=== PATIENT | female | born 1940 | race Caucasian/White ===

== ENCOUNTER 2024-09-27 11:42 | Inpatient (IN) ==
--- NOTE | 2024-09-27 11:56 | Emergency Department Note ---
Impression & Plan Intertrochanteric fracture of right hip, Fall from standing, Acute pain of right hip ED Provider Note HISTORY OF PRESENT ILLNESS: Patient is an 84-year-old female presenting with right hip pain after a fall. Patient reports she was taking her trash outside and slipped on some snow and ice and landed on her right hip and then struck her head. She denies any loss of consciousness. Reports that she was unable to get up secondary to the fall and had to call 911. She denies any anticoagulation or antiplatelet use. Currently complaining of pain at the right lateral hip. Denies any numbness or tingling down her extremities. Denies any chest pain, shortness of breath or lightheadedness prior to the fall, she reports she just lost her footing on the snow. ROS: as above PHYSICAL EXAM: Constitutional: Patient appears in no acute distress. HENT: Head: Normocephalic and atraumatic. Eyes: EOMI, PERRL Mouth/Throat: Mucous membranes moist. Neck: Trachea midline. Neck supple. No midline cervical spine tenderness to palpation. Cardiovascular: RRR, No murmurs, rubs or gallops. Intact distal pulses. Pulmonary/Chest: No respiratory distress. Breath sounds clear and equal bilaterally. No wheezes or rales. No chest wall tenderness to palpation. Abdominal: Abdomen soft, no tenderness, rebound or guarding. Musculoskeletal: - RLE: Right leg is shortened and externally rotated. Tenderness to palpation along the proximal lateral femur. Patient is able to dorsiflex and plantarflex the ankle and wiggle toes. Sensation intact to light touch throughout the nerve distributions of the leg. Intact DP pulse. Skin: Warm and dry. No rash, erythema, pallor or cyanosis Psychiatric: Appropriate mood and affect for situation. Neurological: Alert and keenly responsive. CN II-XII grossly intact MDM: - Vitals signs showed hypertension. - History obtained via patient. History as above. - Chronic conditions affecting care: HTN - Differential diagnoses include, but are not limited to: femur fracture; pelvic fracture; hip dislocation; contusion; intracranial hemorrhage - Order placed for continuous cardiac monitoring. At this time, monitor showed rate of 80 bpm with normal sinus rhythm, per my interpretation. - External medical records reviewed. - EKG interpreted by myself showed normal sinus rhythm. Rate 75 bpm. QT 356. No acute ischemic changes. - Laboratory workup interpreted by myself showed leukocytosis (WBC 12.09); normal PT/INR; stable electrolytes; normal troponin - Xray right hip with pelvis showed intertrochanteric fracture, per my interpretation. - CXR negative for pneumonia, per my interpretation - Patient initially given 50 mcg IV fentanyl. However, on reassessment she still complaining of pain. Given 4 mg IV Zofran and 4 mg IV morphine. However, on reassessment at 14:06, she still complaining of significant pain. Given 0.5 mg IV dilaudid. - CT head wo contrast negative for acute intracranial pathology. - Discussed case with orthopedist flight communications officer, Dr. Rivera. - Discussion was had with casework manager about patient's case and need for admission - Hospitalist consulted for admission - [facility] ASSESSMENT AND PLAN: Diagnosis: intertrochanteric fracture of right hip; fall from standing; acute pain of right hip Plan: admit Past Med/Surg History Problem List (Updated 09/27/24 @ 14:10 by Alexa Lopes MD) Acute pain of right hip (Acute) Fall from standing (Acute) Intertrochanteric fracture of right hip (Acute) Social History Smoking Status: Current every day smoker Feels Safe at Home: Yes Allergies Allergies Allergy/AdvReac Type Severity Reaction Status Date / Time No Known Allergies Allergy Unverified 09/27/24 13:50 Home Meds Home Medications Medication Instructions Recorded Confirmed Fish Oil 1 cap PO DAILY 09/27/24 09/27/24 Vitamin D3 1 tab PO DAILY 09/27/24 09/27/24 acetaminophen 500 mg tablet 50 mg PO DIRECTED PRN Pain 09/27/24 09/27/24 atorvastatin 20 mg tablet 20 mg PO DAILY 09/27/24 09/27/24 calcium 1 tab PO DAILY 09/27/24 09/27/24 lisinopril 20 mg tablet 20 mg PO DAILY 09/27/24 09/27/24 magnesium 1 tab PO DAILY 09/27/24 09/27/24 Results & Data (ED) Vital Signs Vital Signs - 24 hr 09/27/24 11:47 09/27/24 11:49 09/27/24 12:06 Temperature 36.9 C Temperature Source Oral Pulse Rate 73 74 72 Pulse Rate [Finger] Pulse Rhythm [Finger] Pulse Strength [Finger] Respiratory Rate 18 20 Respiratory Effort / Characteristics Respiratory Depth Blood Pressure 155/106 H Blood Pressure [Right Arm] Blood Pressure Mean 122 Blood Pressure Mean [Right Arm] Pulse Oximetry 94 Oxygen Delivery Method Sepsis Recent Fever Within 48 Hours No Sepsis New/Unexplained Change in Mental Status N/A Sepsis Action Taken by Nursing No Action Required 09/27/24 12:12 09/27/24 12:18 09/27/24 13:03 Temperature Temperature Source Pulse Rate 73 66 Pulse Rate [Finger] Pulse Rhythm [Finger] Pulse Strength [Finger] Respiratory Rate 25 H 22 Respiratory Effort / Characteristics Respiratory Depth Blood Pressure 151/75 H Blood Pressure [Right Arm] Blood Pressure Mean 124 Blood Pressure Mean [Right Arm] Pulse Oximetry 92 93 Oxygen Delivery Method Room Air Room Air Sepsis Recent Fever Within 48 Hours Sepsis New/Unexplained Change in Mental Status Sepsis Action Taken by Nursing 09/27/24 13:03 09/27/24 13:06 09/27/24 13:18 Temperature Temperature Source Pulse Rate 64 65 Pulse Rate [Finger] Pulse Rhythm [Finger] Pulse Strength [Finger] Respiratory Rate 18 20 Respiratory Effort / Characteristics Respiratory Depth Blood Pressure 151/75 H Blood Pressure [Right Arm] Blood Pressure Mean 124 Blood Pressure Mean [Right Arm] Pulse Oximetry 94 96 Oxygen Delivery Method Room Air Room Air Sepsis Recent Fever Within 48 Hours Sepsis New/Unexplained Change in Mental Status Sepsis Action Taken by Nursing 09/27/24 13:24 09/27/24 13:30 09/27/24 13:31 Temperature Temperature Source Pulse Rate 87 Pulse Rate [Finger] 79 Pulse Rhythm [Finger] Regular Pulse Strength [Finger] Normal Respiratory Rate 13 20 Respiratory Effort / Characteristics Non-Labored Respiratory Depth Normal Blood Pressure 152/74 H Blood Pressure [Right Arm] 152/74 H Blood Pressure Mean 121 Blood Pressure Mean [Right Arm] 100 Pulse Oximetry 94 Oxygen Delivery Method Room Air Sepsis Recent Fever Within 48 Hours Sepsis New/Unexplained Change in Mental Status Sepsis Action Taken by Nursing Laboratory Data 09/27/24 11:53 09/27/24 11:53 Lab Results 09/27/24 09/27/24 Range/Units 11:53 12:02 WBC 12.09 H (4.8-10.8) K/ul RBC 4.20 (4.20-5.40) M/uL Hgb 13.2 (12.0-16.0) g/dl Hct 39.2 (37.0-47.0) % MCV 93.3 (80.0-100.0) fL MCH 31.4 (25.0-34.0) pg MCHC 33.7 (32.0-36.0) g/dL RDW Std Deviation 42.3 (36.4-46.3) fL RDW Coeff of Jaimee 12.3 (11.5-14.5) % Plt Count 348 (130-400) K/uL MPV 9.0 L (9.4-12.4) fL Immature Gran % (Auto) 0.4 % Neut % (Auto) 63.3 % Lymph % (Auto) 26.7 % Whitley % (Auto) 6.0 % Eos % (Auto) 3.1 % Baso % (Auto) 0.5 % Neut # (Auto) 7.65 H (1.40-6.50) K/uL Lymph # (Auto) 3.23 (1.20-3.40) K/uL Whitley # (Auto) 0.73 H (0.11-0.59) K/uL Eos # (Auto) 0.37 (0.00-0.50) K/uL Baso # (Auto) 0.06 (0.00-0.20) K/uL Immature Gran # (Auto) 0.05 (0.01-0.20) K/uL PT 10.7 (9.0-12.0) Seconds INR 1.0 (0.9-1.1) APTT 25 (21-31) Seconds PTT Ratio 0.9 Sodium 142 (136-145) mmol/L Potassium 4.4 (3.5-5.1) mmol/L Chloride 104 (98-107) mmol/L Carbon Dioxide 31 (21-32) mmol/L Anion Gap 7 (3-11) BUN 26 H (6-23) mg/dl Creatinine 0.91 (0.6-1.2) mg/dl Est Cr Clr Drug Dosing 42.6 ml/min eGFR 61.44 BUN/Creatinine Ratio 28.6 H (10-20) Glucose 126 H (70-99(Fasting)) mg/dl Calcium 10.2 (8.6-10.3) mg/dl Total Bilirubin 0.8 (0.2-1.0) mg/dl AST 15 (13-39) U/L ALT 10 (7-52) U/L Alkaline Phosphatase 62 (34-104) U/L Troponin I High Sens 4.7 (0-14) pg/ml Total Protein 8.0 (6.0-8.3) gm/dl Albumin 4.5 (3.4-5.0) gm/dl Globulin 3.5 (2.5-4.0) gm/dl Albumin/Globulin Ratio 1.3 (0.9-2) Blood Type B Positive Antibody Screen NEGATIVE Administered Medications Discontinued Medications Fentanyl Citrate (Fentanyl Citrate Pf 100 Mcg/2 Ml Vial) 50 mcg IV NOW STA Stop: 09/27/24 11:54 Last Admin: 09/27/24 12:07 Dose: 50 mcg Documented By: SALVADOR Hydromorphone HCl (Hydromorphone Inj 0.5 Mg/0.5 Ml Syr) 0.5 mg IV NOW STA Stop: 09/27/24 14:08 Last Admin: 09/27/24 14:17 Dose: 0.5 mg Documented By: SALVADOR Morphine Sulfate (Morphine Sulfate 4 Mg/Ml 1 Ml Carp\Vial) 4 mg IV NOW STA Stop: 09/27/24 13:20 Last Admin: 09/27/24 13:28 Dose: 4 mg Documented By: DEE Ondansetron HCl (Ondansetron Inj 2 Mg/Ml 2 Ml Vial) 4 mg IV NOW STA Stop: 09/27/24 13:20 Last Admin: 09/27/24 13:28 Dose: 4 mg Documented By: DEE Imaging Data Radiologist's Impression: Hip X-Ray 09/27/24 11:53 XR hip RT min 2V CLINICAL HISTORY: Right hip pain s/p fall COMPARISON: None FINDINGS: There is an acute mildly displaced intertrochanteric fracture of the right femur. The lesser trochanter is displaced. No fractures are identified within visualized portions of the right hemipelvis. IMPRESSION: Acute mildly displaced intertrochanteric fracture of the right femur. ACT 112: Negative or not required by law. Electronically signed by: Lul Rowley M.D. 09/27/2024 1:30 PM Chest X-Ray 09/27/24 11:54 XR chest 1V portable CLINICAL HISTORY: pre op COMPARISON STUDY: No previous studies for comparison. FINDINGS: There is mild cardiomegaly without pulmonary vascular congestion. No effusion, consolidation, or pneumothorax. There is an old fracture proximal left humerus. IMPRESSION: No acute cardiopulmonary findings. ACT 112: Negative or not required by law. Electronically signed by: Manuel Renee 09/27/2024 12:[address] 09/27/24 11:56 CT OF THE HEAD WITHOUT CONTRAST CLINICAL HISTORY: fall from standing COMPARISON STUDY: No previous studies for comparison. CT DOSE: 703.85 mGy.cm TECHNIQUE: Helical axial images of the head were obtained without IV contrast. Automated exposure control was utilized for the study. A dose lowering technique was utilized adhering to the principles of ALARA. FINDINGS: No acute intracranial hemorrhage, midline shift or mass effect is present. White matter hypodensity suggests small vessel disease. The ventricular system is unremarkable. The basal cisterns are patent. No extra-axial collections are present. There are no findings to suggest acute dural sinus thrombosis or acute territorial infarct. No significant calvarial abnormalities are present. Visualized portions of the sinuses and mastoid air cells are clear. IMPRESSION: 1. No acute intracranial findings. 2. No calvarial fractures. ACT 112: Negative or not required by law. Electronically signed by: Lul Rowley M.D. 09/27/2024 1:31 PM Discharge Plan Visit Data Chief Complaint: Fall Stated Complaint: FALL ED Provider: Alexa Lopes Discharge Problem: Intertrochanteric fracture of right hip, Fall from standing, Acute pain of right hip Forms Stand Alone Forms: My [facility] [place] [employer] Prescriptions Prescriptions: No Action atorvastatin 20 mg Tablet 20 mg PO DAILY Rx Instructions: per daughter, she isnt too sure which cholesterol medication pt takes. Either atorvastatin or rosuvastatin. She's pretty positive it's atorvastatin. Fill history hasnt populated with any prescripts. lisinopril 20 mg Tablet 20 mg PO DAILY acetaminophen [Tylenol Ex Str Rapid Release] 500 mg Tablet 50 mg PO DIRECTED PRN (Reason: Pain) Fish Oil 1 cap PO DAILY Rx Instructions: otc unknown dose Vitamin D3 1 tab PO DAILY Rx Instructions: otc unknown dose calcium 1 tab PO DAILY Rx Instructions: otc unknown dose magnesium 1 tab PO DAILY Rx Instructions: otc unknown dose Referrals Referrals: PCP,NO [Physician] -
[2024-09-27] MEDS: fentaNYL citrate PF 100 MCG/2 ML VIAL IV STA (12:07)
[2024-09-27 12:08] LABS: Basophils # (auto) 0.06 K/uL (0.00-0.20); Basophils % (auto) 0.5 %; Eosinophils # (auto) 0.37 K/uL (0.00-0.50); Eosinophils % (auto) 3.1 %; Hematocrit (blood only) 39.2 % (37.0-47.0); Hemoglobin 13.2 g/dl (12.0-16.0); Immature Granulocytes # (auto) 0.05 K/uL (0.01-0.20); Immature Granulocytes % (auto) 0.4 %; Lymphocytes # (auto) 3.23 K/uL (1.20-3.40); Lymphocytes % (auto) 26.7 %; Mean Corpuscular Hemoglobin 31.4 pg (25.0-34.0); Mean Corpuscular Hgb Conc 33.7 g/dL (32.0-36.0); Mean Corpuscular Volume 93.3 fL (80.0-100.0); Monocytes # (auto) 0.73 K/uL (0.11-0.59); Neutrophils # (auto) 7.65 K/uL (1.40-6.50); Neutrophils % (auto) 63.3 %; Platelet Count 348 K/uL (130-400); RDW Coefficient of Variation 12.3 % (11.5-14.5); RDW Standard Deviation 42.3 fL (36.4-46.3); White Blood Count 12.09 K/ul (4.8-10.8)
[2024-09-27 12:25] LABS: Albumin Globulin Ratio 1.3 (0.9-2); Albumin Level 4.5 gm/dl (3.4-5.0); BUN Creatinine Ratio 28.6 (10-20); Bilirubin,Total 0.8 mg/dl (0.2-1.0); Calcium 10.2 mg/dl (8.6-10.3); Creatinine Clr Calc Pharmacy 42.6 ml/min; Globulin 3.5 gm/dl (2.5-4.0); Potassium 4.4 mmol/L (3.5-5.1)
[2024-09-27 12:31] LABS: Troponin I High Sensitivity 4.7 pg/ml (0-14)
[2024-09-27 12:35] LABS: Partial Thromboplastin Ratio 0.9; Partial Thromboplastin Time 25 Seconds (21-31); Prothrombin Time 10.7 Seconds (9.0-12.0)
--- NOTE | 2024-09-27 12:41 | XRay Report ---
XR chest 1V portable CLINICAL HISTORY: pre op COMPARISON STUDY: No previous studies for comparison. FINDINGS: There is mild cardiomegaly without pulmonary vascular congestion. No effusion, consolidatio n, or pneumothorax. There is an old fracture proximal left humerus. IMPRESSION: No acute cardiopulmonary findings. ACT 112: Negative or not required by law. Electronically signed by: Manuel Renee 09/27/2024 12:40 PM
[2024-09-27] MEDS: MoRPHine SULFATE 4 MG/ML 1 ML CARP\\VIAL IV STA (13:28)
[2024-09-27] MEDS: ONDANSETRON INJ 2 MG/ML 2 ML VIAL IV STA (13:28)
--- NOTE | 2024-09-27 13:31 | XRay Report ---
XR hip RT min 2V CLINICAL HISTORY: Right hip pain s/p fall COMPARISON: None FINDINGS: There is an acute mildly displaced intertrochanteric fracture of the right femur. The less er trochanter is displaced. No fractures are identified within visualized portions of the right hemip primo. IMPRESSION: Acute mildly displaced intertrochanteric fracture of the right femur. ACT 112: Negative or not required by law. Electronically signed by: Lul Rowley M.D. 09/27/2024 1:30 PM
--- NOTE | 2024-09-27 13:33 | CT Scan Report ---
CT OF THE HEAD WITHOUT CONTRAST CLINICAL HISTORY: fall from standing COMPARISON STUDY: No previous studies for comparison. CT DOSE: 703.85 mGy.cm TECHNIQUE: Helical axial images of the head were obtained without IV contrast. Automated exposure con trol was utilized for the study. A dose lowering technique was utilized adhering to the principles o f ALARA. FINDINGS: No acute intracranial hemorrhage, midline shift or mass effect is present. White matter hyp odensity suggests small vessel disease. The ventricular system is unremarkable. The basal cisterns ar e patent. No extra-axial collections are present. There are no findings to suggest acute dural sinus thrombosis or acute territorial infarct. No significant calvarial abnormalities are present. Visualiz ed portions of the sinuses and mastoid air cells are clear. IMPRESSION: 1. No acute intracranial findings. 2. No calvarial fractures. ACT 112: Negative or not required by law. Electronically signed by: Lul Rowley M.D. 09/27/2024 1:31 PM
[2024-09-27] MEDS: HYDROmorphone INJ 0.5 MG/0.5 ML SYR IV STA (14:17)
--- NOTE | 2024-09-27 15:04 | History & Physical Report ---
Date of Service September 27, 2024 Assessment & Plan (1) Intertrochanteric fracture of right hip: Plan: Gladis is a 84-year-old female history of hyperlipidemia and hypertension who presented after mechanical fall on ice taking out her trash who sustained a right hip fracture. She is recommended for admission for right hip repair. Right hip fracture Mechanical fall due to falling on ice. No syncope/presyncope that led to her fall Well-controlled hypertension and hyperlipidemia. No history of GA/CHF/anginal symptoms and is typically independent at baseline. No history of diabetes, TIA/CVA, or CKD RCRI 0 points, class I risk, 3.9% risk of 30-day mortality. Admitting EKG sinus with first-degree AV block. Recommend monitoring on medical telemetry. No history of Lyme, no baseline EKG available for comparison. Lyme test ordered. Orthopedics consulted N.p.o. pending orthopedic evaluation. If no surgery is anticipated until 09/28 may have heart healthy diet until midnight Weaver placed Hypertension Lisinopril held preoperatively Blood pressure tolerable on admission Vaginal prolapse On exam patient has a small vaginal prolapse. Nontender. This was easily reduced at the bedside. Weaver subsequently to be placed by nursing Patient reports she is not ever noticed this before and has no symptoms of this although does get some urge incontinence. May follow-up as outpatient with OB for pessary fitting. Would not recommend surgical management at this time as she has not tried a pessary and she is asymptomatic, but certainly could follow-up for this if desired Hyperlipidemia Statin temporarily held DVT prophylaxis: Held pending surgical evaluation CODE STATUS: DNR/DNI Disposition: Medical telemetry due to first-degree heart block Diet: N.p.o. If no surgery anticipated 09/27 then may give heart healthy diet and n.p.o. at midnight. (2) Vaginal prolapse: (3) Tobacco abuse: History of Present Illness Primary Care Provider: ASHLYN [place] Talking out trash, fell on ice Pain worst at right ANTERIOR hip No LOC No heart problems. No orthopnea. No history of GA No kidney problems No history of DM History of controlled HTN on lisinopril. HLD on atorvastatin No history of strokes No other medical history No medication allergies Has a history of hysterectomy at age 38, does not remember the reason. History of 2 miscarriages. No hx cancer Wears depends due to urge incontinence intermittent. No dysuria. Primary Care Doctor: Dr. Lupe [facility] Medical History: Reviewed Medications: Reviewed Surgical History: Reviewed Family history: Reviewed Allergies: Reviewed Social History: Heavy smoker, 1ppd x60 years. No history of COPD. No wheezing. Social ETOH use. Code Status:DNR/DNI Allergies Allergy/AdvReac Type Severity Reaction Status Date / Time No Known Allergies Allergy Unverified 09/27/24 13:50 Home Medications Medication Instructions Recorded Confirmed Type Fish Oil 1 cap PO DAILY 09/27/24 09/27/24 History Vitamin D3 1 tab PO DAILY 09/27/24 09/27/24 History acetaminophen 500 mg tablet 50 mg PO DIRECTED PRN Pain 09/27/24 09/27/24 History atorvastatin 20 mg tablet 20 mg PO DAILY 09/27/24 09/27/24 History calcium 1 tab PO DAILY 09/27/24 09/27/24 History lisinopril 20 mg tablet 20 mg PO DAILY 09/27/24 09/27/24 History magnesium 1 tab PO DAILY 09/27/24 09/27/24 History Past Med/Surg History Problem List (Updated 09/27/24 @ 15:17 by Joaquim Sheth MD) Tobacco abuse Vaginal prolapse Acute pain of right hip (Acute) Fall from standing (Acute) Intertrochanteric fracture of right hip (Acute) Social History Smoking Status: Current every day smoker Feels Safe at Home: Yes Physical Exam Physical Exam: General: A&Ox3. NAD. Cooperative. HEENT: Atraumatic, normocephalic. Vision and hearing grossly intact Pulm: CTAB A&P. -wheezes, -rales, -rhonchi. Symmetrical chest rise. No increased work of breathing. No respiratory distress. Cardiac: RRR, -mrg. Radial pulses intact and symmetrical. Abdominal: Nontender, nondistended, soft. BS present. : Vaginal prolapse present on exam. No pain. Reduced during exam without discomfort. Extremities: Right hip tender to palpation at the anterior hip. Ankle dorsiflexion/plantarflexion 5/5. PT pulses intact bilaterally. Sensation in feet is intact bilaterally without deficit Results & Data Results & Data Vital Signs (Past 12 Hours) Vital Signs Temp Pulse Pulse Resp BP BP Pulse Ox 09/27/24 14:00 143/89 H 09/27/24 13:48 69 15 91 09/27/24 13:39 70 18 91 09/27/24 13:31 79 20 152/74 H 94 09/27/24 13:30 152/74 H 09/27/24 13:24 87 13 09/27/24 13:18 65 20 96 09/27/24 13:06 64 18 94 09/27/24 13:03 151/75 H 09/27/24 13:03 151/75 H 09/27/24 12:18 66 22 93 09/27/24 12:12 73 25 H 92 09/27/24 12:06 72 20 09/27/24 11:49 74 09/27/24 11:47 36.9 C 73 18 155/106 H 94 O2 Del Method 09/27/24 14:00 09/27/24 13:48 Room Air 09/27/24 13:39 Room Air 09/27/24 13:31 Room Air 09/27/24 13:30 09/27/24 13:24 09/27/24 13:18 Room Air 09/27/24 13:06 Room Air 09/27/24 13:03 09/27/24 13:03 09/27/24 12:18 Room Air 09/27/24 12:12 Room Air 09/27/24 12:06 09/27/24 11:49 09/27/24 11:47 PG Care Time/CCT Total # of Minutes Spent Total Time Spent with Patient: Total time spent is greater than 50% in coordination of care (as documented) at patient's floor/unit and/or counseling patient: Coding Level of Care Code 59085 INT INP/OBS CARE 2/55MIN Diagnoses Intertrochanteric fracture of right hip S72.141A Vaginal prolapse N81.10 Tobacco abuse Z72.0
[2024-09-27] MEDS ORDERED: ONDANSETRON INJ 2 MG/ML 2 ML VIAL IV PRN (15:24)
[2024-09-27] MEDS: SODIUM CHLORIDE 0.9% 1,000 ML IV SCH (15:50)
[2024-09-27 15:58] LABS: Appearance Urine Cloudy (Clear); Bacteria Urine Automated 4+ (None Seen); Bilirubin Urine Negative (Negative); Blood Urine 2+ (Negative); Cast Urine Automated 0-2 /lpf (0-2); Color Urine Yellow; Epithelial Cell Urine Auto 0-2 /hpf (0-2); Glucose Urine UA Negative (Negative); Ketones Urine Trace (Negative); Leukocyte Esterase Urine 1+ (Negative); Nitrite Urine Positive (Negative); Protein Urine Trace (Negative); RBC Urine Automated >20 /hpf (0-2); Specific Gravity Urine 1.019 (1.000-1.030); Urobilinogen Urine Negative (Negative); pH Urine 7.5 (4.5-7.5)
--- NOTE | 2024-09-27 16:28 | Orthopedic Consultation ---
Date of Service September 27, 2024 Assessment & Plan (1) Intertrochanteric fracture of right hip: She was educated on this injury and treatment options for it. I recommend surgical fixation specifically trochanteric nailing. Procedure explained with her. She can eat/drink today, npo after midnight with the plan to operate 09/28. History of Present Illness Reason for Consultation: right hip fracture Requesting Physician: . Attending Physician: Joaquim Sheth MD . Gladis is a 84 year old patient who injured her right hip today. She was taking her garbage out and slipped on some ice and fell. She had immediate hip pain. Denies hip pain prior to this injury. Uses a cane some for ambulation. No other injuries. Allergies Allergy/AdvReac Type Severity Reaction Status Date / Time No Known Allergies Allergy Verified 09/28/24 11:51 Home Medications Medication Instructions Recorded Confirmed Type Fish Oil 1 cap PO DAILY 09/27/24 09/27/24 History Vitamin D3 1 tab PO DAILY 09/27/24 09/27/24 History acetaminophen 500 mg tablet 50 mg PO DIRECTED PRN Pain 09/27/24 09/27/24 History atorvastatin 20 mg tablet 20 mg PO DAILY 09/27/24 09/27/24 History calcium 1 tab PO DAILY 09/27/24 09/27/24 History lisinopril 20 mg tablet 20 mg PO DAILY 09/27/24 09/27/24 History magnesium 1 tab PO DAILY 09/27/24 09/27/24 History Past Med/Surg History Problem List Encounter for pre-operative examination Tobacco abuse Vaginal prolapse Acute pain of right hip (Acute) Fall from standing (Acute) Intertrochanteric fracture of right hip (Acute) Social History Smoking Status: Current every day smoker Tobacco Type: Cigarettes Do You Dip or Chew Tobacco: No; Hx Alcohol Use: Yes Alcohol type: wine Hx Substance Use: No Preferred Language: Slovenian Communication Ability: Effective Registered Dental Assistant Rda Required: No Beliefs That Will Affect Care: None Current Living Situation: Family and Other Current Living Situation Comment: With daughtermandie Feels Safe at Home: Yes Safety Concerns: Feels Safe At This Time Assistive Devices: Denture - Upper Review of Systems All systems reviewed & are unremarkable except as noted in HPI & below. Physical Exam .alert and oriented. NAD Right leg: shortened and externally rotated. Able to dorsiflex, plantarflex. NVI. No knee effusion or tenderness around the knee. Constitutional WD/WN, vitals as above no acute distress and not intoxicated appearing Respiratory normal respiratory effort; no labored breathing Cardiovascular Extremities: normal capillary refill Results & Data Results & Data Laboratory Results H & H 09/27/24 09/28/24 Range/Units 11:53 06:41 Hgb 13.2 10.6 L (12.0-16.0) g/dl Hct 39.2 31.6 L (37.0-47.0) % Coagulation 09/27/24 Range/Units 11:53 INR 1.0 (0.9-1.1) Diagnostic Findings . xrays show a minimally displaced right intertroch fx. PG Care Time/CCT Total # of Minutes Spent Total Time Spent with Patient: Total time spent is greater than 50% in coordination of care (as documented) at patient's floor/unit and/or counseling patient: Supervising Physician Co-Signing Physician Notes Patient was independently seen and evaluated. Agree with the PA note. I explained the dx, prognosis, and recommended treatment of operative fixation with a trochanteric fixation nail. The procedure will be RIGHT INTERTROCHANTERIC FEMUR FRACTURE OPEN OR CLOSED REDUCTION AND INTERNAL FIXATION. I reviewed the risks, benefits, and alternatives. Informed consent was obtained with the patient and her daughter, Melissa. Proceed as planned. Coding Level of Care Code 86891 IN/OBS CONSULT LVL 4,60M (57 - DECISION FOR SURGERY) Diagnoses Intertrochanteric fracture of right hip S72.141A
[2024-09-27] MEDS: ACETAMINOPHEN 1,000 MG/100 ML VIAL IV PRN (17:30)
[2024-09-27] MEDS ORDERED: cefTRIAXone SODIUM 2,000 MG/50 ML BAG IV SCH (18:00)
[2024-09-27] MEDS ORDERED: MAGNESIUM HYDROXIDE SUSP 30 ML UDC PO PRN (18:41)
[2024-09-27] MEDS ORDERED: bisacodyL 10 MG SUPP PR PRN (18:41)
[2024-09-27] MEDS ORDERED: NALOXONE HCL 0.4 MG/1 ML VIAL/CARP IV PRN (18:41)
[2024-09-27] MEDS: cefTRIAXone SODIUM 1,000 MG/50 ML BAG IV SCH (18:43)
[2024-09-27] MEDS: HYDROmorphone INJ 0.5 MG/0.5 ML SYR IV PRN (22:49)
[2024-09-28] MEDS: HYDROmorphone INJ 1 MG/ML SYRINGE IV PRN (01:50)
--- NOTE | 2024-09-28 05:53 | Electrocardiogram Report ---
Test Reason : Blood Pressure : */* mmHG Vent. Rate : 75 BPM Atrial Rate : 75 BPM P-R Int : 212 ms QRS Dur : 68 ms QT Int : 356 ms P-R-T Axes : 83 -61 68 degrees QTcB Int : 397 ms Sinus rhythm with sinus arrhythmia with 1st degree A-V block Left axis deviation Pulmonary disease pattern Abnormal ECG No previous ECGs available Confirmed by Dain Sarabia ([id number]) on 09/28/2024 5:53:40 AM Referred By: Confirmed By: Dain Sarabia
[2024-09-28 07:17] LABS: Basophils # (auto) 0.05 K/uL (0.00-0.20); Basophils % (auto) 0.3 %; Eosinophils # (auto) 0.11 K/uL (0.00-0.50); Eosinophils % (auto) 0.8 %; Hematocrit (blood only) 31.6 % (37.0-47.0); Hemoglobin 10.6 g/dl (12.0-16.0); Immature Granulocytes # (auto) 0.07 K/uL (0.01-0.20); Immature Granulocytes % (auto) 0.5 %; Lymphocytes # (auto) 2.06 K/uL (1.20-3.40); Lymphocytes % (auto) 14.3 %; Mean Corpuscular Hemoglobin 31.2 pg (25.0-34.0); Mean Corpuscular Hgb Conc 33.5 g/dL (32.0-36.0); Mean Corpuscular Volume 92.9 fL (80.0-100.0); Mean Platelet Volume 9.1 fL (9.4-12.4); Monocytes # (auto) 1.31 K/uL (0.11-0.59); Monocytes % (auto) 9.1 %; Platelet Count 282 K/uL (130-400); RDW Coefficient of Variation 12.4 % (11.5-14.5)
[2024-09-28 07:25] LABS: BUN Creatinine Ratio 22.9 (10-20); Calcium 8.8 mg/dl (8.6-10.3); Creatinine Clr Calc Pharmacy 45.8 ml/min; Potassium 4.2 mmol/L (3.5-5.1)
--- NOTE | 2024-09-28 11:06 | Anesthesiology Consultation ---
Date of Service September 28, 2024 Assessment & Plan (1) Encounter for pre-operative examination: Chart Review Chart Review: Acceptable Risk for Surgery and Patient NOT seen in Pre Admission Testing Consults Requested none History Surgery Operation Date: 09/28/24 08:35 Proposed Procedures p Right Long Trochanteric Femoral Nail - Raz Rivera MD Height/Weight Height: 5 ft 4 in Weight: 66.9 kg Allergies Allergy/AdvReac Type Severity Reaction Status Date / Time No Known Allergies Allergy Unverified 09/27/24 13:50 Medications Home Medications Medication Instructions Recorded Confirmed Last Taken Fish Oil 1 cap PO DAILY 09/27/24 09/27/24 Unknown Vitamin D3 1 tab PO DAILY 09/27/24 09/27/24 Unknown acetaminophen 500 mg tablet 50 mg PO DIRECTED PRN Pain 09/27/24 09/27/24 09/27/24 atorvastatin 20 mg tablet 20 mg PO DAILY 09/27/24 09/27/24 Unknown calcium 1 tab PO DAILY 09/27/24 09/27/24 09/27/24 lisinopril 20 mg tablet 20 mg PO DAILY 09/27/24 09/27/24 Unknown magnesium 1 tab PO DAILY 09/27/24 09/27/24 Unknown Active Medications Generic Name Dose Route Start Last Admin Trade Name Freq PRN Reason Stop Dose Admin Hydromorphone HCl 0.25 mg 09/27/24 15:24 09/28/24 07:27 Hydromorphone Inj 0.5 Mg/0.5 Ml Syr IV 10/11/24 15:23 0.25 mg Q2H PRN Administration Moderate Pain (4,5,6) on NRS Hydromorphone HCl 0.5 mg 09/27/24 15:24 09/28/24 01:50 Hydromorphone Inj 1 Mg/Ml Syringe IV 10/11/24 15:23 0.5 mg Q2H PRN Administration Severe Pain (7,8,9,10) on NRS Acetaminophen 1,000 mg in 100 mls @ 400 mls/hr 09/27/24 15:24 09/27/24 18:14 Ofirmev IV 09/30/24 15:23 Infused Q8H PRN Infusion Fever/Mild Pain (Pain 1,2,3) Sodium Chloride 1,000 mls @ 125 mls/hr 09/27/24 15:30 09/28/24 09:00 Nss IV 09/28/24 15:29 125 mls/hr .Q8H JANINE Administration Ceftriaxone Sodium 1,000 mg in 50 mls @ 100 mls/hr 09/27/24 18:00 09/27/24 19:13 Rocephin IV 10/02/24 17:59 Infused Q24H JANINE Infusion Social History Smoking Status: Current every day smoker Do You Dip or Chew Tobacco: No Hx Alcohol Use: Yes Alcohol type: wine alcohol intake frequency: holidays/special occasions only Hx Substance Use: No Physical Exam Vital Signs Last Vital Signs Temp 99.0 F 09/28/24 07:53 Pulse 85 09/28/24 07:53 Resp 18 09/28/24 07:53 BP 145/78 H 09/28/24 07:53 Pulse Ox 93 09/28/24 10:00 O2 Del Method Room Air 09/28/24 10:00 Testing Laboratory Results 09/28/24 06:41 09/28/24 06:41 PT 10.7 Seconds (9.0-12.0) 09/27/24 11:53 INR 1.0 (0.9-1.1) 09/27/24 11:53 APTT 25 Seconds (21-31) 09/27/24 11:53 Urine Color Yellow 09/27/24 15:26 Urine Appearance Cloudy (Clear) A 09/27/24 15:26 Urine pH 7.5 (4.5-7.5) 09/27/24 15:26 Ur Specific Declo 1.019 (1.000-1.030) 09/27/24 15:26 Urine Protein Trace (Negative) H 09/27/24 15:26 Urine Glucose (UA) Negative (Negative) 09/27/24 15:26 Urine Ketones Trace (Negative) H 09/27/24 15:26 Urine Nitrite Positive (Negative) A 09/27/24 15:26 Ur Leukocyte Esterase 1+ (Negative) H 09/27/24 15:26 Urine WBC (Auto) 11-20 /hpf (0-5) H 09/27/24 15:26 Urine RBC (Auto) >20 /hpf (0-2) H 09/27/24 15:26 U Hyaline Cast (Auto) 0-2 /lpf (0-2) 09/27/24 15:26 U Epithel Cells (Auto) 0-2 /hpf (0-2) 09/27/24 15:26 Urine Bacteria (Auto) 4+ (None Seen) H 09/27/24 15:26 Blood Type B Positive 09/27/24 12:02 Antibody Screen NEGATIVE 09/27/24 12:02 09/27/24 15:26 Urine Culture - Preliminary Urine,Straight Cath Escherichia coli Electrocardiogram Date: 09/27/24 Findings: + NSR @ (1st degree heart block) Chest X-Ray Date: 09/27/24 Findings: + NAD
[2024-09-28] MEDS ORDERED: ARTIFICIAL TEARS OPB PRN (11:22)
--- NOTE | 2024-09-28 11:22 | Hospitalist Progress Note ---
Date of Service September 28, 2024 Assessment & Plan (1) Intertrochanteric fracture of right hip: Plan: Gladis is a 84-year-old female history of hyperlipidemia and hypertension who presented after mechanical fall on ice taking out her trash who sustained a right hip fracture. She is recommended for admission for right hip repair. Right hip fracture Mechanical fall due to falling on ice. No syncope/presyncope that led to her fall Well-controlled hypertension and hyperlipidemia. No history of OH/CHF/anginal symptoms and is typically independent at baseline. No history of diabetes, TIA/CVA, or CKD RCRI 0 points, class I risk, 3.9% risk of 30-day mortality. abbi. Orthopedics consulted N.p.o. pending orthopedic evaluation. Anticipate repair 09/28. NPO. Weaver placed. Draining yellow urine. Hypertension Lisinopril held preoperatively Blood pressure tolerable on admission Vaginal prolapse On exam patient has a small vaginal prolapse. Nontender. This was easily reduced at the bedside on admit. Weaver subsequently to be placed by nursingbhumika appropriately. Patient reports she is not ever noticed this before and has no symptoms of this although does get some urge incontinence. May follow-up as outpatient with OB for pessary fitting. Would not recommend surgical management at this time as she has not tried a pessary and she is asymptomatic, but certainly could follow-up for this if desired Hyperlipidemia Statin temporarily held DVT prophylaxis: Held preoperatively CODE STATUS: DNR/DNI Disposition: Medical telemetry due to AVB Diet: N.p.o. (2) Vaginal prolapse: (3) Tobacco abuse: Admission and Anticipated Discharge Date Admission Date: September 27, 2024 Subjective Seen preop. Doing wlel, no changes. Eyes dry would like lubricating drops otherwise no concerns. Weaver draining appropriately. Family updated on bedside. No operative time as of yet, Physical Exam Physical Exam: General: A&Ox3. NAD. Cooperative. HEENT: Atraumatic, normocephalic. 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 -wheezes, -rales, -rhonchi. Symmetrical chest rise. No increased work of breathing. No respiratory distress. Cardiac: RRR, -mrg. Radial pulses intact and symmetrical. Abdominal: Nontender, nondistended, soft. BS present. : Vaginal prolapse present on exam. No pain. Reduced during exam without discomfort. Extremities: Right hip tender to palpation at the anterior hip. Ankle dorsiflexion/plantarflexion 5/5. PT pulses intact bilaterally. Sensation in feet is intact bilaterally without deficit Results & Data Results & Data Vital Signs (Past 12 Hours) Vital Signs Temp Pulse Pulse Resp BP Pulse Ox Pulse Ox 09/28/24 10:00 93 09/28/24 07:53 37.2 C 85 18 145/78 H 90 09/28/24 07:16 78 09/28/24 06:00 92 09/28/24 05:22 37.1 C 85 18 111/67 91 09/28/24 02:00 92 09/27/24 23:27 36.9 C 86 18 135/67 91 O2 Del Method O2 Del Method 09/28/24 10:00 Room Air 09/28/24 07:53 Room Air 09/28/24 07:16 09/28/24 06:00 Room Air, Oxyhood 09/28/24 05:22 Room Air 09/28/24 02:00 Room Air 09/27/24 23:27 Room Air PG Care Time/CCT Total # of Minutes Spent Total Time Spent with Patient: Total time spent is greater than 50% in coordination of care (as documented) at patient's floor/unit and/or counseling patient: Coding Level of Care Code 00795 SUB INP/OBS CARE 10/16MIN Diagnoses Intertrochanteric fracture of right hip S72.141A Vaginal prolapse N81.10 Tobacco abuse Z72.0
[2024-09-28] MEDS ORDERED: ONDANSETRON INJ 2 MG/ML 2 ML VIAL ONE (11:58)
[2024-09-28] MEDS ORDERED: DEXAMETHASONE SOD INJ 4 MG/ML VIAL ONE (11:58)
[2024-09-28] MEDS ORDERED: PROPOFOL IV EMULSION 10 MG/ML 20 ML VIAL IV ONE (11:58)
[2024-09-28] MEDS ORDERED: LIDOCAINE 2% 2 ML VIAL/AMP(20MG/ML) INFIL ONE (11:58)
[2024-09-28] MEDS ORDERED: fentaNYL citrate PF 100 MCG/2 ML VIAL ONE ×2 (11:59→13:59)
[2024-09-28] MEDS ORDERED: GLYCOPYRROLATE 0.2 MG/ML VIAL ONE (12:02)
[2024-09-28] MEDS ORDERED: ATROPINE SULFATE 0.1 MG/ML 10ML SYR IV PRN (12:24)
[2024-09-28] MEDS ORDERED: fentaNYL citrate PF 100 MCG/2 ML VIAL IV PRN (12:24)
[2024-09-28] MEDS ORDERED: ePHEDrine sulfate 50 MG/ML AMP IV PRN (12:24)
[2024-09-28] MEDS ORDERED: ONDANSETRON INJ 2 MG/ML 2 ML VIAL IV PRN (12:24)
--- NOTE | 2024-09-28 12:51 | History & Physical Bridge Note ---
Date of Service September 28, 2024 History & Physical Bridge Note I have examined the patient, reviewed the History & Physical and in the interval since the performance of the History & Physical I have noted the following changes of clinical significance: no changes noted
[2024-09-28] MEDS: ceFAZolin 2000MG 2,000 MG/15 ML SYR IV ONE (13:04)
[2024-09-28] MEDS: TRANEXAMIC ACID / 0.7% NACL 1000MG/100ML BAG IV ONE (13:45)
[2024-09-28] MEDS: ceFAZolin 2,000 MG/15 ML IV PUSH IV ONE (13:59)
[2024-09-28] MEDS: BUPIVACAINE/EPINEPHRINE 0.5% MPF 1:200,000 30 ML VIAL ONE (14:25)
--- NOTE | 2024-09-28 14:40 | Fluoroscopy Report ---
FL femur RT 2V CLINICAL HISTORY: RIGHT LONG TOTAL FEMORAL NAIL COMPARISON STUDY: None FLUOROSCOPY TIME: 65 seconds FLUOROSCOPY IMAGES: 5 EXPOSURE DOSE: 15 mGy FINDINGS: Right femoral gamma nail is present with no significant displacement at the proximal femur fracture. IMPRESSION: Intraoperative fluoroscopy. ACT 112: Negative or not required by law. Electronically signed by: Manuel Renee M.D. 09/28/2024 2:38 PM
--- NOTE | 2024-09-28 15:41 | Anesthesiology Progress Note ---
Date of Service September 28, 2024 Anesthesia Post Procedure Vital Signs Vital Signs: Temp Pulse Pulse Pulse Resp BP BP 09/28/24 15:20 97.9 F 80 18 155/89 H 09/28/24 15:10 82 18 143/67 H 09/28/24 15:00 80 18 130/87 09/28/24 14:50 82 16 104/60 09/28/24 14:43 98.2 F 69 18 108/53 L 09/28/24 11:52 100.0 F H 82 20 155/85 H 09/28/24 11:31 98.8 F 77 16 135/70 09/28/24 10:00 09/28/24 07:53 99.0 F 85 18 145/78 H 09/28/24 07:16 78 09/28/24 06:00 09/28/24 05:22 98.8 F 85 18 111/67 09/28/24 02:00 09/27/24 23:27 98.4 F 86 18 135/67 09/27/24 22:41 09/27/24 21:54 76 09/27/24 20:07 98.8 F 73 18 121/74 09/27/24 19:45 09/27/24 18:47 98.2 F 83 18 149/72 H 09/27/24 18:34 78 09/27/24 17:40 72 17 131/60 09/27/24 17:24 72 16 09/27/24 17:18 67 18 09/27/24 16:48 67 09/27/24 16:33 65 16 09/27/24 16:30 140/61 09/27/24 16:27 79 23 09/27/24 16:24 75 21 09/27/24 16:15 69 16 09/27/24 16:03 81 09/27/24 16:00 135/60 09/27/24 15:42 73 16 Pulse Ox Pulse Ox O2 Del Method O2 Del Method O2 Flow Rate 09/28/24 15:20 95 Nasal Cannula 2 09/28/24 15:10 96 Nasal Cannula 2 09/28/24 15:00 93 Room Air 09/28/24 14:50 94 Oxymask 4 09/28/24 14:43 97 Oxymask 8 09/28/24 11:52 92 Room Air 09/28/24 11:31 90 Room Air 01/07/25 10:00 93 Room Air 09/28/24 07:53 90 Room Air 09/28/24 07:16 09/28/24 06:00 92 Room Air, Oxyhood 09/28/24 05:22 91 Room Air 09/28/24 02:00 92 Room Air 09/27/24 23:27 91 Room Air 09/27/24 22:41 92 Room Air 09/27/24 21:54 09/27/24 20:07 92 Room Air 09/27/24 19:45 Room Air 09/27/24 18:47 92 Room Air 09/27/24 18:34 09/27/24 17:40 93 Room Air 09/27/24 17:24 93 Room Air 09/27/24 17:18 92 Room Air 09/27/24 16:48 09/27/24 16:33 93 Room Air 09/27/24 16:30 09/27/24 16:27 92 Room Air 09/27/24 16:24 91 Room Air 09/27/24 16:15 94 Room Air 09/27/24 16:03 93 Room Air 09/27/24 16:00 09/27/24 15:42 92 Room Air Pain Intensity Right Hip: Pain Intensity: 6 Transfer of Care Handoff Completed per policy Notes Mental Status: alert / awake / arousable and participated in evaluation Patient Amnestic to Procedure: Yes Nausea / Vomiting: adequately controlled Pain: adequately controlled Airway Patency, RR, SpO2: stable & adequate BP & HR: stable & adequate Hydration State: stable & adequate Anesthetic Complications: no major complications apparent and Pt Satisfied with anesthetic care
--- NOTE | 2024-09-28 15:46 | XRay Report ---
XR femur RT 2V routine HISTORY: 84 years-old Female Post-Operative implant position COMPARISON: Hip radiographs 09/27/2024 TECHNIQUE: 2 views of the right femur FINDINGS: Intertrochanteric nail medullary serena fixates the acute intertrochanteric right femoral fracture. Late ral skin gabriela are noted along with expected postoperative soft tissue swelling with deep tissue ai r. Arterial calcifications. IMPRESSION: Status post ORIF of the acute intertrochanteric right femoral fracture. ACT 112: Negative or not required by law. The above report was generated using voice recognition software. It may contain grammatical, syntax o r spelling errors. Electronically signed by: Farshad Martinez M.D. 09/28/2024 3:45 PM
--- NOTE | 2024-09-28 19:33 | Operative Report ---
PG Post Operative Report Pre & Post Diagnosis Operation Date: 09/28/24 08:35 Pre-Op Diagnosis: Right Intertrochanteric Hip Fracture Post-Op Diagnosis: Right Intertrochanteric Hip Fracture I identified the patient and participated in the time-out.: Yes Procedure Operation Date: 09/28/24 08:35 Actual Procedures p Right Intertrochanteric Femur fracture closed reduction and internal fixation with cephalomedullary nail (Right) - Raz Rivera MD Surgeon Raz Rivera MD Smalltalk Developer Lupe Sue PA-C Estimated Blood Loss 100 Findings See Below Comminuted peritroch fx with subtroch and lateral cortical extension All [employer] implants: 10 mm/130 degree titanium cannulated trochanteric fixation nail of 360 mm length. 10.0 mm titanium helical blade of 90 mm length. Distal interlock screw measuring 40 mm. Specimens none Anesthesia Type General Regional Complications none Disposition Accompanied Patient To Recovery: No Disposition: Surgical ICU Indications 84 yo F fell at home resulting in an intertrochanteric fracture. Surgical stabilization was recommended, and informed consent was obtained from the patient and her daughter. Description of Procedure On the day of surgery should be was greeted in the preoperative holding area and the informed consent was reviewed and confirmed. The surgical site was then identified by the patient and signed by myself. The patient was taken to the operating placed by the OR table and anesthesia was induced. The patient is then positioned on the fracture table. All arleen prominences were well padded. The operative foot was placed in the fracture boot with abundant padding. The well leg was secured. We then positioned the lower extremities in a scissor fashion with a non-op leg flexed down to allow visualization with fluoroscopy which was confirmed before we prepped and draped. Surgical timeout was called and verified by all present. Antibiotics were in fused, and equipment was available and functional. The procedure was initiated with a closed reduction maneuvers. Gentle in-line traction pulled the fracture out to length. The limb was then internally rotated to reduce the proximal femur. Flexion and adduction were used to adjust the reduction and allow access to the greater trochanter. We had adequate reduction prior to prepping and draping. The leg was then prepped and draped in usual sterile fashion. Surgical timeout was reconfirmed. We initiated the surgical internal fixation portion with finding the start point with the tip of the greater trochanter. Fluoroscopic guidance was used and a small poke hole was established. The start point was confirmed on fluoroscopy in AP and lateral planes and the pin was advanced using a mallet. An incision was made about the pin to allow access for the reamers. The pin was then advanced past the lesser trochanter, and its position was confirmed using AP and lateral fluoroscopy. Using the protective sleeve, the opening reamer was advanced under power with fluoroscopic guidance over the guidepin. The reduction wire was then advanced down the distal femur to the level of the superior pole of the patella. Measurement was taken from the tip of the trochanter down to the end of the guidewire, and the nail length was selected. We then began sequential reaming. We started with 10mm and used fluoroscopy to guide our reaming. We advanced the reaming in gradual increments up to a 11.5. An 10 mm nail was loaded onto the jig and advanced manually down the canal, while ensuring maintenance of the reduction on fluoroscopy. We then tapped it down into place until we achieve the good position for our cephalo-medullary screw. The cannula was placed on the jig to allow positioning of the cephalo-medullary screw. The skin incision was made in the appropriate spot. The jig cannulas were then placed against the lateral cortex. The cephalo-medullary screw guidepin was advanced towards the femoral head. The center-center position was confirmed on fluoroscopy in AP and lateral planes. The length of the screw was measured off the guide. The helical blade screw was then opened on the back table and prepared on the screwdriver. The lateral cortical opening drill, followed by the triple drill reamer for the helical blade was advanced under fluoroscopic guidance. The helical blade was advanced over the guidepin to appropriate position. The helical blade was locked in rotation and then the traction was taken off. Fluoroscopy confirmed maintenance of reduction and adequate position of the implant. The compression sleeve was then advanced against the lateral femur to improve the trochanteric-shaft reduction and compress the intertrochanteric region fracture. Attention was then directed distally to perform the interlock screws in using perfect [employer] technique. 1 interlock screw was placed with a 5 mm diameter. The length was measured using a depth gauge, with fluoroscopic guidance. This completed the fixation of the fracture. Fluoroscopy was used in both AP and lateral planes to evaluate the entirety of the fracture and implant. Reduction and implant positions were acceptable. The wounds were then thoroughly irrigated with bulb syringe and normal saline. The deep fascial layer was approximated with 0 Vicryl suture. The dermal layer was approximated using 2-0 Vicryl suture. The final skin closure was completed with gabriela. Wounds were dressed with sterile Xeroform, sterile gauze, and [foam tape] over ABDs. The patient tolerated procedure well, awoke from anesthesia without complication, was extubated in the operating room, and transferred to the PACU in stable condition. Disposition: The patient be weightbearing as tolerated. I recommended routine DVT prophylaxis consisting of oral aspirin, if tolerable. DVT prophylaxis should last 6 weeks. 24 hours of antibiotic prophylaxis should be continued. Physician dental assistant attestation: Lupe Sue PA-C was present and scrubbed for the duration of the case. She was essential to prepping/draping, patient positioning, retraction, and assistance with wound closure. I attest to the content of the Intraoperative Record and any orders documented therein. Any exceptions are noted below.
[2024-09-28] MEDS: ASPIRIN 81 MG ECTAB PO SCH (20:40)
[2024-09-28] MEDS: ceFAZolin 2000MG 2,000 MG/15 ML SYR IV SCH (21:13)
--- NOTE | 2024-09-29 08:17 | Hospitalist Progress Note ---
Date of Service September 29, 2024 Assessment & Plan (1) Intertrochanteric fracture of right hip: (2) Vaginal prolapse: (3) Tobacco abuse: Tomi Griffith is a 84-year-old female history of hyperlipidemia and hypertension who presented after mechanical fall on ice taking out her trash who sustained a right hip fracture. S/p right hip repair 09/28/[address] Rivera Right hip fracture repair 09/28/24 RCRI 0 points, class I risk, 3.9% risk of 30-day mortality. abbi. -pending PT/OT eval leukocytosis in context of vaginal prolapse, given leukocytosis has increased will treat as uti poa ceftriaxone x 5 days Chronic stable Hypertension Lisinopril held perioperatively Blood pressure stable on admission Vaginal prolapse small vaginal prolapse. Nontender. This was easily reduced at the bedside on admit. Weaver subsequently to be placed by nursing, draining appropriately. Patient reports she is not ever noticed this before and has no symptoms of this although does get some urge incontinence. May follow-up as outpatient with OB for pessary fitting. Hyperlipidemia Statin temporarily held DVT prophylaxis: orthopedics chooses aspirin bid CODE STATUS: DNR/DNI Admission and Anticipated Discharge Date Admission Date: September 27, 2024 Subjective Seen with daughter, pt did stand at PT, no focal complaints Family updated on bedside. disposition to rehab, family supports rehab decision Physical Exam Physical Exam: awake and alert pain controlled cardiac is regular, there is a click heard lungs are clear Results & Data Results & Data Vital Signs (Past 12 Hours) Vital Signs Temp Pulse Pulse Resp BP Pulse Ox Pulse Ox 09/29/24 07:16 98.2 F 79 18 129/71 90 09/29/24 06:00 09/29/24 02:00 09/28/24 23:13 97.7 F 93 H 18 133/82 91 09/28/24 22:00 66 09/28/24 22:00 91 O2 Del Method O2 Del Method O2 Flow Rate 09/29/24 07:16 Nasal Cannula 2 09/29/24 06:00 Room Air 09/29/24 02:00 Room Air 09/28/24 23:13 Room Air 09/28/24 22:00 09/28/24 22:00 Room Air Laboratory Results review cbc has leukocytosis- e coli uti review chemistry transfer level of care all meds and orders reviewed PG Care Time/CCT Total # of Minutes Spent Total Time Spent with Patient: Total time spent is greater than 50% in coordination of care (as documented) at patient's floor/unit and/or counseling patient: Coding Level of Care Code 02744 SUB INP/OBS CARE 2/35MIN Diagnoses Intertrochanteric fracture of right hip S72.141A Vaginal prolapse N81.10 Tobacco abuse Z72.0
[2024-09-29 08:31] LABS: Basophils # (auto) 0.03 K/uL (0.00-0.20); Basophils % (auto) 0.2 %; Hematocrit (blood only) 31.8 % (37.0-47.0); Hemoglobin 10.6 g/dl (12.0-16.0); Immature Granulocytes % (auto) 0.5 %; Lymphocytes # (auto) 2.05 K/uL (1.20-3.40); Lymphocytes % (auto) 11.2 %; Mean Corpuscular Hgb Conc 33.3 g/dL (32.0-36.0); Mean Platelet Volume 9.3 fL (9.4-12.4); Monocytes # (auto) 1.49 K/uL (0.11-0.59); Monocytes % (auto) 8.2 %; Neutrophils # (auto) 14.59 K/uL (1.40-6.50); Neutrophils % (auto) 79.9 %; Platelet Count 279 K/uL (130-400); RDW Coefficient of Variation 12.2 % (11.5-14.5); RDW Standard Deviation 41.9 fL (36.4-46.3); Red Blood Count 3.42 M/uL (4.20-5.40); White Blood Count 18.26 K/ul (4.8-10.8)
[2024-09-29 08:50] LABS: BUN Creatinine Ratio 21.2 (10-20); Calcium 8.8 mg/dl (8.6-10.3); Creatinine Clr Calc Pharmacy 46.3 ml/min; Potassium 3.9 mmol/L (3.5-5.1)
[2024-09-29] MEDS: ATORVASTATIN 20 MG TAB PO SCH (09:18)
[2024-09-29] MEDS: CALCIUM CARBONATE 1250MG TAB PO SCH (09:18)
[2024-09-29] MEDS: CHOLECALCIFEROL 25 MCG (1000 UNITS) TAB PO SCH (09:18)
[2024-09-29] MEDS: OMEGA-3 (PURIFIED FISH OIL) 1 GM CAP PO SCH (09:18)
[2024-09-29] MEDS: lisinopril 20 MG TAB PO SCH (09:18)
[2024-09-29] MEDS: MAGNESIUM OXIDE 400 MG TAB PO SCH (09:18)
--- NOTE | 2024-09-29 12:31 | Orthopedic Progress Note ---
Date of Service September 29, 2024 Assessment & Plan (1) Intertrochanteric fracture of right hip: (2) Status post hip surgery: Plan HIP Fx: 84-year-old female POD# 1 s/p closed reduction internal fixation of RIGHT intertrochanteric femur/hip fracture with long IM nail, cannulated femoral head/neck compression screw, and static distal locking screw. Plan: 1. DVT prophylaxis w/ ASA 81 mg BID x 6 weeks, if tolerable. 2. PT/OT as tolerated. WBAT on RLE. 3. Pain relatively well-controlled continue current regimen. 4. Medical management as per the primary medicine service. 5. Dressing may be changed on POD#3; while inpatient, she should have the dressing covered with occlusive top layer or tape, but when discharged, surgical wound can be left open to air. Plan for staple removal at 2-week postop check. 6. Disposition - pending PT/OT evals. 7. Follow-up outpatient with Dr. Rivera's team 12-14 days postop. Admission and Anticipated Discharge Date Admission Date: September 27, 2024 Subjective Patient is POD# 1 s/p closed reduction internal fixation of RIGHT intertrochanteric femur/hip fracture with long IM nail, cannulated femoral head/neck compression screw, and static distal locking screw by Dr. Rivera on 09/28/2024. Patient says her pain is well-controlled this morning. Denies CP, SOB, N/V, RLE paresthesia. She says that she has lived with her daughter for the past 13 years or so ever since her . She would prefer to return home if possible, but understands that this will depend on her PT/OT evaluation. She was not against potentially going to an inpatient rehab facility for a short time if that is what is recommended. Results & Data Vital Signs (Past 12 Hours) Vital Signs Temp Pulse Resp BP Pulse Ox O2 Del Method O2 Del Method 09/29/24 10:41 36.7 C 84 19 100/65 92 Room Air 09/29/24 07:16 36.8 C 79 18 129/71 90 Nasal Cannula 09/29/24 06:00 Room Air 09/29/24 02:00 Room Air O2 Flow Rate 09/29/24 10:41 09/29/24 07:16 2 09/29/24 06:00 09/29/24 02:00 Laboratory Results Laboratory Results - last 24 hr 09/29/24 07:55 WBC 18.26 H RBC 3.42 L Hgb 10.6 L Hct 31.8 L MCV 93.0 MCH 31.0 MCHC 33.3 RDW Std Deviation 41.9 RDW Coeff of Jaimee 12.2 Plt Count 279 MPV 9.3 L Immature Gran % (Auto) 0.5 Neut % (Auto) 79.9 Lymph % (Auto) 11.2 [place] % (Auto) 8.2 Eos % (Auto) 0.0 Baso % (Auto) 0.2 Neut # (Auto) 14.59 H Lymph # (Auto) 2.05 [place] # (Auto) 1.49 H Eos # (Auto) 0.00 Baso # (Auto) 0.03 Immature Gran # (Auto) 0.10 Sodium 137 Potassium 3.9 Chloride 105 Carbon Dioxide 26 Anion Gap 6 BUN 18 Creatinine 0.85 Est Cr Clr Drug Dosing 46.3 eGFR 66.68 BUN/Creatinine Ratio 21.2 H Glucose 102 H Calcium 8.8 Diagnostic Findings Femur X-Ray 09/28/24 14:44 XR femur RT 2V routine HISTORY: 84 years-old Female Post-Operative implant position COMPARISON: Hip radiographs 09/27/2024 TECHNIQUE: 2 views of the right femur FINDINGS: Intertrochanteric nail medullary serena fixates the acute intertrochanteric right femoral fracture. Lateral skin gabriela are noted along with expected postoperative soft tissue swelling with deep tissue air. Arterial calcificatio ns. IMPRESSION: Status post ORIF of the acute intertrochanteric right femoral fracture. ACT 112: Negative or not required by law. The above report was generated using voice recognition software. It may contain grammatical, syntax or spelling errors. Electronically signed by: Farshad Martinez M.D. 09/28/2024 3:45 PM
[2024-09-30] MEDS: ACETAMINOPHEN 500 MG TAB PO PRN (00:43)
--- NOTE | 2024-09-30 07:43 | Orthopedic Progress Note ---
Date of Service September 30, 2024 Assessment & Plan (1) Status post hip surgery: POD 2 from right TFN. Continue PT/OT wbat dvt prophylaxis: teds, scd's, aspirin d/c planning: Patient states she would like to go to [facility] if possible. Follow up with Dr Rivera/ortho 2-3 weeks post op. Subjective . 84 year old patient POD 2 from right TFN with Dr Rivera. Sleeping this morning. Denies any hip pain presently. Did have some pain with ambulation yesterday. Review of Systems All systems reviewed & are unremarkable except as noted in HPI & below. Physical Exam . alert and oriented. NAD Right leg: dressing clean, dry, intact. Thigh soft, no knee effusion. Able to dorsiflex and plantarflex. NVI Results & Data Results & Data Laboratory Results . Diagnostic Findings . PG Care Time/CCT Total # of Minutes Spent Total Time Spent with Patient: Total time spent is greater than 50% in coordination of care (as documented) at patient's floor/unit and/or counseling patient: Coding Level of Care Code 79773 Post Operative Follow-Up Diagnoses Status post hip surgery Z98.890
[2024-09-30 08:16] LABS: Basophils # (auto) 0.04 K/uL (0.00-0.20); Basophils % (auto) 0.3 %; Eosinophils # (auto) 0.11 K/uL (0.00-0.50); Eosinophils % (auto) 0.7 %; Hematocrit (blood only) 28.5 % (37.0-47.0); Hemoglobin 9.5 g/dl (12.0-16.0); Immature Granulocytes # (auto) 0.06 K/uL (0.01-0.20); Immature Granulocytes % (auto) 0.4 %; Lymphocytes # (auto) 2.67 K/uL (1.20-3.40); Lymphocytes % (auto) 16.8 %; Mean Corpuscular Hemoglobin 30.9 pg (25.0-34.0); Mean Corpuscular Hgb Conc 33.3 g/dL (32.0-36.0); Mean Corpuscular Volume 92.8 fL (80.0-100.0); Mean Platelet Volume 9.4 fL (9.4-12.4); Monocytes # (auto) 1.47 K/uL (0.11-0.59); Monocytes % (auto) 9.2 %; Neutrophils # (auto) 11.58 K/uL (1.40-6.50); Neutrophils % (auto) 72.6 %; Platelet Count 283 K/uL (130-400); RDW Coefficient of Variation 12.7 % (11.5-14.5); Red Blood Count 3.07 M/uL (4.20-5.40); White Blood Count 15.93 K/ul (4.8-10.8)
[2024-09-30 08:50] LABS: BUN Creatinine Ratio 30.3 (10-20); Calcium 8.7 mg/dl (8.6-10.3); Creatinine Clr Calc Pharmacy 51.8 ml/min; Potassium 3.9 mmol/L (3.5-5.1)
[2024-10-01] MEDS: PNEUMOCOCCAL VACCINE (PCV20) 20-VAL CONJ-DIP CRM/PF 0.5 ML SYR IM ONE (06:34)
[2024-10-01] MEDS: INFLUENZA VACC TS2024-25(65y+)/PF (IIV3) 0.5mL Syr IM ONE (06:37)
[2024-10-01 07:58] VITALS: RESP 18
[2024-10-01 08:24] VITALS: BP 122/68; TEMP 98.2; O2SAT 90
--- NOTE | 2024-10-01 08:46 | Orthopedic Progress Note ---
Date of Service October 01, 2024 Assessment & Plan (1) Status post hip surgery: POD 3 from right TFN. Continue PT/OT wbat Woul dreccomend covering wound while transporting and daily dressing changes until seen by ortho dvt prophylaxis: teds, scd's, aspirin d/c planning: [facility] today per patient Follow up with Dr Rivera/ortho 2-3 weeks post op. Subjective Operation Date: 09/28/24 08:35 Actual Procedures p Right Intertrochanteric Femur fracture closed reduction and internal fixation with cephalomedullary nail (Right) - Raz Rivera MD Gladis is an 84-year-old female who is postop day 3 from a right intertrochanteric femur fracture closed reduction and internal fixation by Dr. Rivera. She is doing well. Therapy has been working with her. She will be discharged to [facility] later today in the late morning and early afternoon. She has been ambulating with assistance and with a walker. States that her pain is mainly when she is ambulating but does not have pain at rest. No other questions or concerns today. Review of Systems All systems reviewed & are unremarkable except as noted in HPI & below. Physical Exam General: Alert and oriented. No acute stress. Right hip: Wound check satisfactory. No edema, drainage or open wounds noted. Donal are intact. There is no dressing on. I would recommend a daily dressing change until seen by me. She has good range of motion of the right lower extremity. Neurovascular intact right lower extremity. Results & Data Results & Data Laboratory Results . Diagnostic Findings . PG Care Time/CCT Total # of Minutes Spent Total Time Spent with Patient: Total time spent is greater than 50% in coordination of care (as documented) at patient's floor/unit and/or counseling patient: Coding Diagnoses Status post hip surgery Z98.890
[2024-10-01 09:29] VITALS: PULSE 97
--- NOTE | 2024-10-01 10:55 | Hospitalist Progress Note ---
Date of Service September 30, 2024 Assessment & Plan (1) Intertrochanteric fracture of right hip: (2) Vaginal prolapse: (3) Tobacco abuse: Tomi Griffith is a 84-year-old female history of hyperlipidemia and hypertension who presented after mechanical fall on ice taking out her trash who sustained a right hip fracture. S/p right hip repair 09/28/[address] Rivera Right hip fracture repair 09/28/24 RCRI 0 points, class I risk, 3.9% risk of 30-day mortality. abbi. -pending PT/OT eval leukocytosis in context of vaginal prolapse, given leukocytosis has increased will treat as uti poa ceftriaxone x 5 days Chronic stable Hypertension Lisinopril held perioperatively Blood pressure stable on admission Vaginal prolapse small vaginal prolapse. Nontender. This was easily reduced at the bedside on admit. Weaver subsequently to be placed by nursing, draining appropriately. Patient reports she is not ever noticed this before and has no symptoms of this although does get some urge incontinence. May follow-up as outpatient with OB for pessary fitting. Hyperlipidemia Statin temporarily held DVT prophylaxis: orthopedics chooses aspirin bid CODE STATUS: DNR/DNI Admission and Anticipated Discharge Date Admission Date: September 27, 2024 Subjective pt hasb good pain control, weak Physical Exam Physical Exam: awake and alert pain controlled cardiac is regular, there is a click heard lungs are clear Results & Data Results & Data Vital Signs (Past 12 Hours) Vital Signs Temp Pulse Pulse Pulse Resp BP Pulse Ox 10/01/24 10:45 98.2 F 89 97 H 86 18 122/68 90 10/01/24 09:27 98.2 F 89 97 H 86 18 122/68 90 10/01/24 08:30 10/01/24 08:22 98.2 F 89 18 122/68 90 10/01/24 07:57 99.3 F 97 H 18 114/64 94 O2 Del Method 10/01/24 10:45 10/01/24 09:27 10/01/24 08:30 Room Air 10/01/24 08:22 Room Air 10/01/24 07:57 Room Air PG Care Time/CCT Total # of Minutes Spent Total Time Spent with Patient: Total time spent is greater than 50% in coordination of care (as documented) at patient's floor/unit and/or counseling patient: Coding Level of Care Code 40283 SUB INP/OBS CARE 35MIN Diagnoses Intertrochanteric fracture of right hip S72.141A Vaginal prolapse N81.10 Tobacco abuse Z72.0
--- NOTE | 2024-10-02 13:55 | Discharge Summary ---
Discharge Summary Date of Service October 01, 2024 Principal Dx & Hospital Course #1 = Principal Diagnosis (1) Intertrochanteric fracture of right hip: (2) Vaginal prolapse: (3) Tobacco abuse: Tomi Griffith is a 84-year-old female history of hyperlipidemia and hypertension who presented after mechanical fall on ice taking out her trash who sustained a right hip fracture. S/p right hip repair 09/28/[address] Rivera Right hip fracture repair 09/28/24 RCRI 0 points, class I risk, 3.9% risk of 30-day mortality. abbi. -pending PT/OT eval leukocytosis in context of vaginal prolapse, given leukocytosis has increased will treat as uti poa ceftriaxone x 5 days Chronic stable Hypertension Lisinopril held perioperatively Blood pressure stable on admission Vaginal prolapse small vaginal prolapse. Nontender. This was easily reduced at the bedside on admit. Weaver subsequently to be placed by nursing, draining appropriately. Patient reports she is not ever noticed this before and has no symptoms of this although does get some urge incontinence. May follow-up as outpatient with OB for pessary fitting. Hyperlipidemia Statin temporarily held DVT prophylaxis: orthopedics chooses aspirin bid CODE STATUS: DNR/DNI Admission HPI Per Admitting Provider Talking out trash, fell on ice Pain worst at right ANTERIOR hip No LOC No heart problems. No orthopnea. No history of UT No kidney problems No history of DM History of controlled HTN on lisinopril. HLD on atorvastatin No history of strokes No other medical history No medication allergies Has a history of hysterectomy at age 38, does not remember the reason. History of 2 miscarriages. No hx cancer Wears depends due to urge incontinence intermittent. No dysuria. Primary Care Doctor: Dr. Lupe Menchaca [facility] Medical History: Reviewed Medications: Reviewed Surgical History: Reviewed Family history: Reviewed Allergies: Reviewed Social History: Heavy smoker, 1ppd x60 years. No history of COPD. No wheezing. Social ETOH use. Code Status:DNR/DNI Discharge Plan Discharge Items Patient Disposition: Transfer [facility] Fac Reason For Visit: FALL Discharge Diagnosis: right hip fracture with surgical repair UTI poa Activity: Per Instructions section Activity Comment: per PT OT Non-emergency contact: Primary Care Provider and Surgeon Call non-emergency contact if: your symptoms worsen Follow-up/Referrals: Lupe Alvarez CRNP [Primary Care Provider] - Diet: Regular Addtl Attending Provider Instructions: UTI poa, completed 3 days of treatment Addtl Enrollment Management Director Provider Instructions: Orthopaedic Instructions after Hip Fracture Surgery: Please keep your wound clean and dry. Do not remove any of the donal. Donal will be removed at your follow-up appointment with orthopedic surgery. Please continue daily dressing changes until your follow-up appointment. If necessary, donal can be removed by a nurse at home or at a nursing facility upon our order. Please contact the clinic. If there is no drainage onto the dressing for total of 24 hours, you may shower after 5 days from surgery. Allow soap and water to run over the incision, no scrubbing, and pat dry. Do not submerse (sitting in bathtub, hot tub, jacuzzi, pool, etc) the wound for at least 3 weeks. You may bear weight on your lower extremities as tolerated. Please use the walker or as instructed by physical therapy. For pain control please use Tylenol as needed. You may also have a stronger pain medication prescribed to you at discharge. You can also apply ice to the surgical site. To reduce the risk of dangerous blood clots please continue aspirin 325 mg by mouth daily or the medication for blood clots recommended by your medical team. Orthopedic clinic follow-up should be in 2-3 weeks after surgery for repeat x- ray. Pending Studies at Discharge: No Stand-Alone Forms: My [facility] Skilled Items Patient informed of condition?: Yes DNR: Yes Discharge Level of Care: Skilled Communicable Disease: No Discharge Prognosis: Stable Lines: None Urinary Catheter: No Medications and DC Order Prescriptions: New aspirin 81 mg Tablet,Delayed Release (Dr/Ec) 81 mg PO BID Qty: 70 0RF tramadol 50 mg tablet 50 mg PO Q8H PRN (Reason: pain) Qty: 10 0RF cefpodoxime 200 mg tablet 200 mg PO BID 3 Days Qty: 6 0RF Rx Instructions: must administer with a meal/food First dose with dinner on 10/01 Continued atorvastatin 20 mg Tablet 20 mg PO DAILY Rx Instructions: per daughter, she isnt too sure which cholesterol medication pt takes. Either atorvastatin or rosuvastatin. She's pretty positive it's atorvastatin. Fill history hasnt populated with any prescripts. lisinopril 20 mg Tablet 20 mg PO DAILY acetaminophen 500 mg Tablet 50 mg PO DIRECTED PRN (Reason: Pain) Fish Oil 1 cap PO DAILY Rx Instructions: otc unknown dose Vitamin D3 1 tab PO DAILY Rx Instructions: otc unknown dose calcium 1 tab PO DAILY Rx Instructions: otc unknown dose magnesium 1 tab PO DAILY Rx Instructions: otc unknown dose Discharge Orders: Discharge Order (Routine); Ordered 10/01/24 Ordered By: Ulises Asif/Other Patient Handouts: How Your Hip Works, Medicine for Pain Admission Data Admit Date/Time: 09/27/24 15:23 Attending Provider: Ulises Villar Admit Provider: Joaquim Sheth Primary Care Provider: Lupe Alvarez Other Providers: Rom Murillo; Raz Rivera; Joaquim Sheth Other Interventions: Discharge Summary Assessment (RN) Last Done: 10/01/24 10:45 Hospital Stay Data Consultations 09/27/24 14:04 Consult Orthopedic Surgery Routine 09/27/24 14:10 ED Decision to Admit Stat Procedures Performed Operation Date: 09/28/24 08:35 Actual Procedures p Right Intertronchanteric Femur Intramedullary Laci(Right) - Raz Rivera MD Diagnostic Imagining Performed 09/27/24 11:56 CT head/brain wo con Stat 09/28/24 13:01 FL femur RT 2V Routine Pending Results Patient Have Any Pending Studies at Discharge: No Discharge Instructions Given to Patient (Per Discharging Provider) UTI poa, completed 3 days of treatment Coding Diagnoses Intertrochanteric fracture of right hip S72.141A Vaginal prolapse N81.10 Tobacco abuse Z72.0
== END 2024-10-01 10:45 | DRG 481 ==
LOC: SUATTDRO → ED 11:42 → 2S 15:23 → SUATTDRO 15:23 → 2S 17:41 → 3W 09-29 22:53

== ENCOUNTER 2024-11-22 20:16 | Observation (INO) ==
[2024-11-22] MEDS: SODIUM CHLORIDE 0.9% 500 ML IV SCH (20:56)
[2024-11-22 21:17] LABS: Albumin Level 3.5 gm/dl (3.4-5.0); BUN Creatinine Ratio 20.7 (10-20); Bilirubin Direct 0.1 mg/dl (0-0.2); Bilirubin,Total 0.4 mg/dl (0.2-1.0); Calcium 9.6 mg/dl (8.6-10.3); Creatinine Clr Calc Pharmacy 33.2 ml/min; Magnesium 1.7 mg/dl (1.7-2.4); Potassium 3.8 mmol/L (3.5-5.1); Total Protein 6.6 gm/dl (6.0-8.3)
--- NOTE | 2024-11-22 21:18 | Emergency Department Note ---
Impression & Plan Influenza A ED Provider Note NAME: JODIE VALDES AGE: 84 SEX: Female INFORMANT: Patient and family ED PROVIDER(S): Jigar Pate MD CHIEF COMPLAINT: Illness PLAN: Disposition: Admitted Outpatient prescription management: none Referral: None MEDICAL DECISION MAKING: Patient presented because of illness. She was febrile, hypotensive and hypoxic. With treatment prehospital the patient improved and presented without hypoxia or hypotension. She underwent a workup. Her CBC and chemistry panels were unremarkable. Patient's ECG did not show any acute ischemia. Chest x-ray was negative. Patient's lactate was normal. BioFire testing performed and the patient was found to have influenza A. The patient was hydrated in the emergency department. She was treated with Tamiflu. Patient and family were updated. Given the hypoxia and hypotensive episode patient will need further monitoring and treatment in the hospital. Consultation was made with Dr. Pike of the [facility] service. Case discussed and diagnostics were reviewed. Patient was evaluated in the ER for further management. Care/management discussed with: microfabrication engineer manager Level of care consideration(s): After review of the information above and other included data, I feel the patient requires escalation of care to admission Triage Nursing notes: reviewed and agree them. Vital Signs: reviewed and remarkable for no significant abnormalities Additional History obtained from: Family Chronic Medical/Social Conditions affecting care: Hypertension Prior/ Outside/ External records reviewed: none Differential Diagnosis: Sepsis, UTI, pneumonia, metabolic, electrolyte abnormalities, cardiac sources, intracerebral event, toxicologic, neurologic, as well as other pathologies. Diagnostics, independently interpreted by me: ECG: Twelve-lead ECG reveals sinus rhythm with a first-degree AV block with PACs and left axis deviation. Inferior Q waves. No evidence of pericarditis, ischemia, or dysrhythmia. Cardiac Monitoring: Cardiac monitoring ordered by me: The patient was placed on continuous cardiac monitoring and observed. It revealed a normal sinus rhythm at 85 beats per minute without ectopy or evidence of dysrhythmia. Medical decision rules: none Imaging studies: Chest x-ray. Findings: A chest x-ray was performed and revealed no pneumothorax, effusion, infiltrate, pulmonary edema, free air under the diaphragm, or wide mediastinum. Impression: No acute disease. HPI: 84 year old Female arrives for evaluation of illness. This started yesterday and is worse today per family. Patient was sent from her personal care facility due to hypotension, hypoxia and fever. She had increased weakness. The patient also notes the following associated symptoms, fatigue. The patient has been given Tylenol, DuoNeb, and a saline bolus by EMS for relieving factors. Current pain is rated as 0/10. Patient was tested for COVID and flu and those were negative per family. Pt denies LOC, headache, visual changes, neck pain, chest pain, breathing difficulties, nausea, vomiting, abdominal pain, back pain, melena, hematochezia, urinary symptoms, numbness, lymphadenopathy, rash, or other complaints.. PAST MEDICAL HISTORY: See Below, hypertension, high cholesterol PAST SURGICAL HISTORY: See Below, total hip replacement SOCIAL HISTORY: See Below, retired HOME MEDICATIONS: See Below ALLERGIES: See Below VITALS: See Below PHYSICAL EXAMINATION: GENERAL: Awake, alert, mildly ill-appearing, in no distress HENT: Normocephalic, atraumatic. Oropharynx unremarkable. EYES: Normal conjunctiva. Sclera non-icteric. NECK: Inspection normal. Non-tender. Supple. No nuchal rigidity. FROM. No masses. RESPIRATORY: Clear to auscultation. No wheezes. No rales. Normal respiratory effort. CARDIAC: Normal rate. Normal rhythm. No murmurs. No rubs. Extremities warm and well perfused. Pulses equal. No JVD. GI: Soft, non-distended. No tenderness to palpation. No rebound or guarding. No masses. RECTAL: Deferred. MUSCULOSKELETAL: Atraumatic. No hip tenderness to palpation or erythema. Chest examination reveals no tenderness. The back is symmetrical on inspection without obvious abnormality. There is no CVA tenderness to palpation. No joint edema. LOWER EXTREMITIES: Calves are equal size bilaterally and non-tender. No edema. No discoloration. NEURO: Normal sensorium. No sensory or motor deficits noted. SKIN: No rash or jaundice noted. PROCEDURES: none CRITICAL CARE: none OBSERVATION NOTE: none Past Med/Surg History Problem List (Updated 11/23/24 @ 03:27 by Jigar Pate MD) Anemia Influenza A (Acute) Intertrochanteric fracture of right hip (Acute) Medical History Tobacco abuse Vaginal prolapse Acute pain of right hip Fall from standing Social History Smoking Status: Current every day smoker Tobacco Type: Cigarettes Second Hand Exposure: No; Do You Dip or Chew Tobacco: No; Tobacco Cessation Education Requested by Patient: No Hx Alcohol Use: Yes Alcohol type: wine Hx Substance Use: No Preferred Language: Turkmen Communication Ability: Effective Sand Filler Required: No Beliefs That Will Affect Care: None Current Living Situation: Care Home Current Living Situation Comment: With [email or web address] Other Information That Helps Us Care for You: No Feels Safe at Home: Yes Safety Concerns: Feels Safe At This Time Assistive Devices: Walker Allergies Allergies Allergy/AdvReac Type Severity Reaction Status Date / Time No Known Allergies Allergy Verified 09/28/24 11:51 Home Meds Home Medications Medication Instructions Recorded Confirmed acetaminophen 500 mg tablet 500 mg PO Q4H PRN Pain 09/27/24 11/22/24 atorvastatin 20 mg tablet 20 mg PO DAILY 09/27/24 11/22/24 lisinopril 20 mg tablet 20 mg PO DAILY 09/27/24 11/22/24 bisacodyl 5 mg tablet,delayed 10 mg PO HS PRN Constipation 11/22/24 11/22/24 release calcium carbonate 600 tab PO DAILY 11/22/24 11/22/24 cholecalciferol (vitamin D3) 50 50 mcg PO DAILY 11/22/24 11/22/24 mcg (2,000 unit) tablet (Vitamin D3) ferrous sulfate 325 mg (65 mg 325 mg PO DAILY 11/22/24 11/22/24 iron) tablet ipratropium 0.5 mg-albuterol 3 mg 3 ml inhalation Q4H PRN 11/22/24 11/22/24 (2.5 mg base)/3 mL nebulization wheezing/sob/cough soln magnesium 200 mg tablet 400 mg PO DAILY 11/22/24 11/22/24 omega 3-mik-rkh-fish oil 1,200 mg 1,200 cap PO DAILY 11/22/24 11/22/24 (144 mg-216 mg) capsule (Fish Oil) Previous Rx's Medication Instructions Recorded aspirin 81 mg tablet,delayed 81 mg PO BID #70 tabs 09/30/24 release tramadol 50 mg tablet 50 mg PO Q8H PRN pain #10 tabs 09/30/24 Results & Data (ED) Vital Signs Vital Signs - 24 hr 11/22/24 20:22 11/22/24 20:28 11/22/24 20:28 Temperature 36.6 C Temperature Source Oral Pulse Rate 85 96 H Pulse Rate [Apical] 96 H Pulse Rate from SpO2 Sensor Respiratory Rate 16 Blood Pressure 122/59 L Blood Pressure [Right Arm] Blood Pressure Mean 80 Blood Pressure Mean [Right Arm] Pulse Oximetry 93 Oxygen Delivery Method Room Air Sepsis Recent Fever Within 48 Hours Yes Sepsis New/Unexplained Change in Mental Status No Sepsis Action Taken by Nursing No Action Required 11/22/24 20:30 11/22/24 21:00 11/22/24 21:45 Temperature Temperature Source Pulse Rate 85 89 83 Pulse Rate [Apical] Pulse Rate from SpO2 Sensor Respiratory Rate 18 18 22 Blood Pressure 118/57 L 116/75 108/66 Blood Pressure [Right Arm] Blood Pressure Mean 84 91 81 Blood Pressure Mean [Right Arm] Pulse Oximetry 92 93 95 Oxygen Delivery Method Room Air Sepsis Recent Fever Within 48 Hours Sepsis New/Unexplained Change in Mental Status Sepsis Action Taken by Nursing 11/22/24 22:12 11/22/24 22:30 Temperature Temperature Source Pulse Rate 83 Pulse Rate [Apical] 89 Pulse Rate from SpO2 Sensor 95 H Respiratory Rate 23 20 Blood Pressure 115/53 L Blood Pressure [Right Arm] 116/62 Blood Pressure Mean 73 Blood Pressure Mean [Right Arm] 80 Pulse Oximetry 95 96 Oxygen Delivery Method Room Air Sepsis Recent Fever Within 48 Hours Sepsis New/Unexplained Change in Mental Status Sepsis Action Taken by Nursing Laboratory Data 11/22/24 20:25 11/22/24 20:25 Lab Results 11/22/24 11/22/24 11/22/24 Range/Units 20:25 20:54 21:45 WBC 5.61 (4.8-10.8) K/ul RBC 3.83 L (4.20-5.40) M/uL Hgb 11.5 L (12.0-16.0) g/dl Hct 35.9 L (37.0-47.0) % MCV 93.7 (80.0-100.0) fL MCH 30.0 (25.0-34.0) pg MCHC 32.0 (32.0-36.0) g/dL RDW Std Deviation 42.9 (36.4-46.3) fL RDW Coeff of Jaimee 12.5 (11.5-14.5) % Plt Count 312 (130-400) K/uL MPV 9.1 L (9.4-12.4) fL Immature Gran % (Auto) 0.4 % Neut % (Auto) 63.6 % Lymph % (Auto) 19.1 % [place] % (Auto) 15.3 % Eos % (Auto) 0.9 % Baso % (Auto) 0.7 % Neut # (Auto) 3.57 (1.40-6.50) K/uL Lymph # (Auto) 1.07 L (1.20-3.40) K/uL [place] # (Auto) 0.86 H (0.11-0.59) K/uL Eos # (Auto) 0.05 (0.00-0.50) K/uL Baso # (Auto) 0.04 (0.00-0.20) K/uL Immature Gran # (Auto) 0.02 (0.01-0.20) K/uL PT 11.2 (9.0-12.0) Seconds INR 1.0 (0.9-1.1) APTT 27 (21-31) Seconds PTT Ratio 1.0 Sodium 138 (136-145) mmol/L Potassium 3.8 (3.5-5.1) mmol/L Chloride 106 (98-107) mmol/L Carbon Dioxide 28 (21-32) mmol/L Anion Gap 4 (3-11) BUN 23 (6-23) mg/dl Creatinine 1.11 (0.6-1.2) mg/dl Est Cr Clr Drug Dosing 33.2 ml/min eGFR 48.41 BUN/Creatinine Ratio 20.7 H (10-20) Glucose 100 H (70-99(Fasting)) mg/dl Lactate 1.1 (0.4-2.0) mmol/L Calcium 9.6 (8.6-10.3) mg/dl Magnesium 1.7 (1.7-2.4) mg/dl Total Bilirubin 0.4 (0.2-1.0) mg/dl Direct Bilirubin 0.1 (0-0.2) mg/dl AST 15 (13-39) U/L ALT 8 (7-52) U/L Alkaline Phosphatase 92 (34-104) U/L Troponin I High Sens 8.2 (0-14) pg/ml Total Protein 6.6 (6.0-8.3) gm/dl Albumin 3.5 (3.4-5.0) gm/dl Procalcitonin 0.06 (0-0.5) ng/ml Urine Color Yellow Urine Appearance Clear (Clear) Urine pH 6.5 (4.5-7.5) Ur Specific [place] 1.021 (1.000-1.030) Urine Protein Trace H (Negative) Urine Glucose (UA) Negative (Negative) Urine Ketones Trace H (Negative) Urine Blood Negative (Negative) Urine Nitrite Negative (Negative) Urine Bilirubin Negative (Negative) Urine Urobilinogen Negative (Negative) Ur Leukocyte Esterase Negative (Negative) Urine WBC (Auto) 0-5 (0-5) /hpf Urine RBC (Auto) 0-2 (0-2) /hpf U Hyaline Cast (Auto) 0-2 (0-2) /lpf U Epithel Cells (Auto) 0-2 (0-2) /hpf Urine Bacteria (Auto) None Seen (None Seen) Adenovirus (PCR) Not Detected (NotDetected) B. pertussis DNA (PCR) Not Detected (NotDetected) B.parapertussis DNA PCR Not Detected (NotDetected) C. pneumoniae DNA (PCR) Not Detected (NotDetected) Coronavirus OC43 (PCR) Not Detected (NotDetected) Coronavirus HKU1 (PCR) Not Detected (NotDetected) Coronavirus 229E (PCR) Not Detected (NotDetected) SARS-CoV-2 (PCR) Not Detected (NotDetected) Coronavirus NL63 (PCR) Not Detected (NotDetected) Human Metapneumovir PCR Not Detected (NotDetected) Influenza A (H3) PCR DETECTED A (NotDetected) Influenza Type B (PCR) Not Detected (NotDetected) M. pneumoniae (PCR) Not Detected (NotDetected) Parainfluenza 1 (PCR) Not Detected (NotDetected) Parainfluenza 2 (PCR) Not Detected (NotDetected) Parainfluenza 3 (PCR) Not Detected (NotDetected) Parainfluenza 4 (PCR) Not Detected (NotDetected) RSV (PCR) Not Detected (NotDetected) Entero/Rhino (PCR) Not Detected (NotDetected) Administered Medications Sodium Chloride (Nss) 1,000 mls @ 125 mls/hr IV .Q8H JANINE Stop: 11/23/24 20:44 Last Admin: 11/22/24 22:21 Dose: 125 mls/hr Documented By: QGV Discontinued Medications Sodium Chloride (Nss) 500 mls @ 999 mls/hr IV .Q31M JANINE Stop: 11/22/24 21:15 Last Infusion: 11/22/24 21:52 Dose: Infused Documented By: Admin: 11/22/24 20:56 Dose: 999 mls/hr Documented By: QGV Oseltamivir Phosphate (Oseltamivir Phosphate 75 Mg Cap) 75 mg PO NOW STA; Protocol Stop: 11/22/24 22:11 Last Admin: 11/22/24 22:20 Dose: 75 mg Documented By: QGV Imaging Data Radiologist's Impression: Chest X-Ray 11/22/24 20:44 Exam(s): XR CXR 1 VIEW EXAM: XR Chest, 1 View CLINICAL HISTORY: Reason for exam: Sepsis. TECHNIQUE: Frontal view of the chest. COMPARISON: No relevant prior studies available. FINDINGS: Lungs: No consolidation. No overt edema. Pleural space: No pleural effusion. No pneumothorax. Heart: Unremarkable. No cardiomegaly. Bones/joints: Chronic fracture deformity of the left proximal humerus. IMPRESSION: No acute findings in the chest. Electronically signed by: Edwin Camilo MD 11/22/24 23:30 PM Discharge Plan Visit Data Chief Complaint: Illness Stated Complaint: ILLNESS ED Provider: Jigar Pate Discharge Problem: Influenza A Patient Disposition: Admitted As Inpatient Discharge Instructions Interventions: ED Discharge Assessment Last Done: 11/23/24 00:24
[2024-11-22 21:22] LABS: Troponin I High Sensitivity 8.2 pg/ml (0-14)
[2024-11-22 21:27] LABS: Basophils # (auto) 0.04 K/uL (0.00-0.20); Basophils % (auto) 0.7 %; Eosinophils # (auto) 0.05 K/uL (0.00-0.50); Eosinophils % (auto) 0.9 %; Hematocrit (blood only) 35.9 % (37.0-47.0); Hemoglobin 11.5 g/dl (12.0-16.0); Immature Granulocytes # (auto) 0.02 K/uL (0.01-0.20); Immature Granulocytes % (auto) 0.4 %; Lymphocytes # (auto) 1.07 K/uL (1.20-3.40); Lymphocytes % (auto) 19.1 %; Mean Corpuscular Volume 93.7 fL (80.0-100.0); Mean Platelet Volume 9.1 fL (9.4-12.4); Monocytes # (auto) 0.86 K/uL (0.11-0.59); Monocytes % (auto) 15.3 %; Neutrophils # (auto) 3.57 K/uL (1.40-6.50); Neutrophils % (auto) 63.6 %; Platelet Count 312 K/uL (130-400); RDW Coefficient of Variation 12.5 % (11.5-14.5); RDW Standard Deviation 42.9 fL (36.4-46.3); Red Blood Count 3.83 M/uL (4.20-5.40); White Blood Count 5.61 K/ul (4.8-10.8)
[2024-11-22 21:32] LABS: Partial Thromboplastin Time 27 Seconds (21-31); Prothrombin Time 11.2 Seconds (9.0-12.0)
[2024-11-22 21:45] LABS: Adenovirus PCR Not Detected (NotDetected); Bordetella parapertussis PCR Not Detected (NotDetected); Bordetella pertussis PCR Not Detected (NotDetected); Chlamydia pneumoniae PCR Not Detected (NotDetected); Coronavirus 229E PCR Not Detected (NotDetected); Coronavirus CoV-2 (COVID19)PCR Not Detected (NotDetected); Coronavirus HKU1 PCR Not Detected (NotDetected); Coronavirus NL63 PCR Not Detected (NotDetected); Coronavirus OC43PCR Not Detected (NotDetected); Human Metapneumovirus PCR Not Detected (NotDetected); Influenza A (H3) PCR DETECTED (NotDetected); Influenza B PCR Not Detected (NotDetected); Mycoplasma pneumoniae PCR Not Detected (NotDetected); Parainfluenza Virus 1 PCR Not Detected (NotDetected); Parainfluenza Virus 2 PCR Not Detected (NotDetected); Parainfluenza Virus 3 PCR Not Detected (NotDetected); Parainfluenza Virus 4 PCR Not Detected (NotDetected); Respiratory Syncytial VirusPCR Not Detected (NotDetected); Rhinovirus/Enterovirus PCR Not Detected (NotDetected)
[2024-11-22 22:12] LABS: Appearance Urine Clear (Clear); Bacteria Urine Automated None Seen (None Seen); Bilirubin Urine Negative (Negative); Blood Urine Negative (Negative); Cast Urine Automated 0-2 /lpf (0-2); Color Urine Yellow; Epithelial Cell Urine Auto 0-2 /hpf (0-2); Glucose Urine UA Negative (Negative); Ketones Urine Trace (Negative); Leukocyte Esterase Urine Negative (Negative); Nitrite Urine Negative (Negative); Protein Urine Trace (Negative); RBC Urine Automated 0-2 /hpf (0-2); Specific Gravity Urine 1.021 (1.000-1.030); Urobilinogen Urine Negative (Negative); WBC Urine Automated 0-5 /hpf (0-5); pH Urine 6.5 (4.5-7.5)
[2024-11-22] MEDS: OSELTAMIVIR PHOSPHATE 75 MG CAP PO STA (22:20)
[2024-11-22] MEDS: SODIUM CHLORIDE 0.9% 1,000 ML IV SCH (22:21)
--- NOTE | 2024-11-22 22:31 | History & Physical Report ---
Date of Service November 22, 2024 Assessment & Plan (1) Influenza A: (2) Anemia: Plan 84-year-old female PMHx HTN and HLD presenting for "pain" x 1 day. ED evaluation CBC no leukocytosis, H&H 11.5/35.9, CMP with ratio 20.7, procalcitonin 0.06, lactate 1.1, magnesium 1.7; UA negative; BioFire positive for influenza A; CXR appearing grossly WNL, pending official read. #Influenza A Symptoms of body pain x 1 day with associated symptoms of non-productive cough and sick contact being patient's roommate. - CBC without leukocytosis, procal WNL, lactate WNL; BioFire positive for influenza A; CXR w/o acute findings. - Tamiflu 75mg po BID- continue - DuoNebs prn + IC - No O2 at baseline, prn O2 then wean as patient tolerates if needed #Anemia No symptoms of bleeding, not symptomatic per patient. Patient denies history of anemia and appears to be up from baseline per most recent labs but also on ferrous sulfate 325 mg daily as outpatient. - H/H 11.5/25.9, MCV/MCH/MCHC WNL; pending iron panel, vitamin B12, folate - CBC am - Continue ferrous sulfate #HLD- Atorvastatin #HTN- Lisinopril- HOLD given hypotension on arrival Dispo: Admit, med/sx VTE Prophylaxis: Lovenox This document was dictated utilizing [employer]. Please excuse any grammatical errors that may be secondary to use of this software. Admission and Anticipated Discharge Date Admission Date: 11/22/2024 History of Present Illness Chief Complaint: Pain Primary Care Provider: ASHLYN Phoenix 84-year-old female PMHx HTN and HLD presenting for "pain" x 1 day. Patient arrived via EMS from [facility] with hypotension, hypoxia, and fever of 101.4 F. Patient states that 1 day [employer] WORK[employer], she felt "not right," stating that she was having worsening body pains, localizing to her R hip which was just recently operated on. Also has had a cough x "days" which is nonproductive in nature. Patient denying chest pain, shortness of breath, palpitations, abdominal pain, N/V/D/C, N/tingling, weakness, syncope, fever/chills, or URI symptoms to include rhinorrhea or sore throat. Patient states that she thinks that her roommate is sick as she has been coughing excessively. ED evaluation CBC no leukocytosis, H&H 11.5/35.9, CMP with ratio 20.7, procalcitonin 0.06, lactate 1.1, magnesium 1.7; UA negative; BioFire positive for influenza A; CXR appearing grossly WNL, pending official read. Please see Dr. Pike's attestation for adjustments/additions to treatment plan. Allergies Allergy/AdvReac Type Severity Reaction Status Date / Time No Known Allergies Allergy Verified 09/28/24 11:51 Home Medications Medication Instructions Recorded Confirmed Type acetaminophen 500 mg tablet 500 mg PO Q4H PRN Pain 09/27/24 11/22/24 History atorvastatin 20 mg tablet 20 mg PO DAILY 09/27/24 11/22/24 History lisinopril 20 mg tablet 20 mg PO DAILY 09/27/24 11/22/24 History aspirin 81 mg tablet,delayed 81 mg PO BID #70 tabs 09/30/24 11/22/24 Rx release tramadol 50 mg tablet 50 mg PO Q8H PRN pain #10 tabs 09/30/24 11/22/24 Rx bisacodyl 5 mg tablet,delayed 10 mg PO HS PRN Constipation 11/22/24 11/22/24 History release calcium carbonate 600 tab PO DAILY 11/22/24 11/22/24 History cholecalciferol (vitamin D3) 50 50 mcg PO DAILY 11/22/24 11/22/24 History mcg (2,000 unit) tablet (Vitamin D3) ferrous sulfate 325 mg (65 mg 325 mg PO DAILY 11/22/24 11/22/24 History iron) tablet ipratropium 0.5 mg-albuterol 3 mg 3 ml inhalation Q4H PRN 11/22/24 11/22/24 History (2.5 mg base)/3 mL nebulization wheezing/sob/cough soln magnesium 200 mg tablet 400 mg PO DAILY 11/22/24 11/22/24 History omega 4-uch-nux-fish oil 1,200 mg 1,200 cap PO DAILY 11/22/24 11/22/24 History (144 mg-216 mg) capsule (Fish Oil) cyanocobalamin (vitamin B-12) 500 1,000 mcg (2 x 500 mcg) PO QAM #30 11/23/24 Rx mcg tablet tabs Past Med/Surg History Problem List (Updated 11/23/24 @ 03:27 by Jigar Pate MD) Anemia Influenza A (Acute) Intertrochanteric fracture of right hip (Acute) Medical History Tobacco abuse Vaginal prolapse Acute pain of right hip Fall from standing Social History Smoking Status: Current every day smoker Tobacco Type: Cigarettes Second Hand Exposure: No; Do You Dip or Chew Tobacco: No; Tobacco Cessation Education Requested by Patient: No Hx Alcohol Use: Yes Alcohol type: wine Hx Substance Use: No Preferred Language: Icelandic Communication Ability: Effective 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: No Beliefs That Will Affect Care: None Current Living Situation: [facility] Current Living Situation Comment: With [email or web address] Other Information That Helps Us Care for You: No Feels Safe at Home: Yes Safety Concerns: Feels Safe At This Time Assistive Devices: Walker Review of Systems Review of Systems: All systems reviewed & are unremarkable except as noted in Subjective Physical Exam Physical Exam: General: No acute distress Skin: Warm and dry Head: Normocephalic, atraumatic Eyes: PERRL, conjunctivae clear, sclera non-icteric ENT: External ear and ear canal without swelling; nose atraumatic; good dentition, tongue normal appearance, pharynx normal Neck: Supple, no LAD Cardio: RRR, no M/G/R, S1 and S2 normal Resp: No respiratory distress, Lungs CTA in all lobes bilaterally, no wheezes, rales, or rhonchi Abdomen: Soft, symmetric, nontender; no distention; No masses or hepatosplenomegaly; Bowel sounds normoactive MSK: No deformities, full ROM throughout; pulses palpable and equal; no edema; R hip nonerythematous, no edema, no open areas, full ROM Neuro: Awake, alert; CN grossly intact Psych: Appropriate mood and affect; good judgement and insight. Results & Data Results & Data Vital Signs (Past 12 Hours) Vital Signs Temp Pulse Pulse Resp BP Pulse Ox O2 Del Method 11/22/24 22:12 83 23 115/53 L 95 11/22/24 21:45 83 22 108/66 95 11/22/24 21:00 89 18 116/75 93 11/22/24 20:30 85 18 118/57 L 92 Room Air 11/22/24 20:28 96 H 11/22/24 20:28 36.6 C 96 H 16 122/59 L 93 Room Air 11/22/24 20:22 85 Laboratory Results 11/22/24 20:56 Aerobic Blood Culture - Pending Blood Anaerobic Blood Culture - Pending 11/22/24 20:54 Aerobic Blood Culture - Pending Blood Anaerobic Blood Culture - Pending 11/22/24 11/22/24 11/22/24 21:45 20:54 20:25 WBC 5.61 RBC 3.83 L Hgb 11.5 L Hct 35.9 L MCV 93.7 MCH 30.0 MCHC 32.0 RDW Std Deviation 42.9 RDW Coeff of Jaimee 12.5 Plt Count 312 MPV 9.1 L Immature Gran % (Auto) 0.4 Neut % (Auto) 63.6 Lymph % (Auto) 19.1 Cloud % (Auto) 15.3 Eos % (Auto) 0.9 Baso % (Auto) 0.7 Neut # (Auto) 3.57 Lymph # (Auto) 1.07 L Cloud # (Auto) 0.86 H Eos # (Auto) 0.05 Baso # (Auto) 0.04 Immature Gran # (Auto) 0.02 PT 11.2 INR 1.0 APTT 27 PTT Ratio 1.0 Sodium 138 Potassium 3.8 Chloride 106 Carbon Dioxide 28 Anion Gap 4 BUN 23 Creatinine 1.11 Est Cr Clr Drug Dosing 33.2 eGFR 48.41 BUN/Creatinine Ratio 20.7 H Glucose 100 H Lactate 1.1 Calcium 9.6 Magnesium 1.7 Total Bilirubin 0.4 Direct Bilirubin 0.1 AST 15 ALT 8 Alkaline Phosphatase 92 Troponin I High Sens 8.2 Total Protein 6.6 Albumin 3.5 Procalcitonin 0.06 Urine Color Yellow Urine Appearance Clear Urine pH 6.5 Ur Specific [place] 1.021 Urine Protein Trace H Urine Glucose (UA) Negative Urine Ketones Trace H Urine Blood Negative Urine Nitrite Negative Urine Bilirubin Negative Urine Urobilinogen Negative Ur Leukocyte Esterase Negative Urine WBC (Auto) 0-5 Urine RBC (Auto) 0-2 U Hyaline Cast (Auto) 0-2 U Epithel Cells (Auto) 0-2 Urine Bacteria (Auto) None Seen Adenovirus (PCR) Not Detected B. pertussis DNA (PCR) Not Detected B.parapertussis DNA PCR Not Detected C. pneumoniae DNA (PCR) Not Detected Coronavirus OC43 (PCR) Not Detected Coronavirus HKU1 (PCR) Not Detected Coronavirus 229E (PCR) Not Detected SARS-CoV-2 (PCR) Not Detected Coronavirus NL63 (PCR) Not Detected Human Metapneumovir PCR Not Detected Influenza A (H3) PCR DETECTED A Influenza Type B (PCR) Not Detected M. pneumoniae (PCR) Not Detected Parainfluenza 1 (PCR) Not Detected Parainfluenza 2 (PCR) Not Detected Parainfluenza 3 (PCR) Not Detected Parainfluenza 4 (PCR) Not Detected RSV (PCR) Not Detected Entero/Rhino (PCR) Not Detected Medications Administered NSS 1.5L Tamiflu 75mg po Code Status & VTE Plan Code Status DNR/DNI Supervising Physician Co-Signing Physician Notes Patient seen and examined, chart reviewed, case discussed with KOBE Church and I agree with the assessment and plan as above. PG Care Time/CCT Total # of Minutes Spent Total Time Spent with Patient: Total time spent is greater than 50% in coordination of care (as documented) at patient's floor/unit and/or counseling patient: Coding Level of Care Code 11398 INT INP/OBS CARE 3/75MIN Diagnoses Influenza A J10.1 Anemia D64.9
[2024-11-22] MEDS ORDERED: ALBUT/IPRATROP 3MG/0.5MG NEB 3 ML VIAL NEB PRN (23:05)
--- NOTE | 2024-11-22 23:31 | XRay Report ---
Exam(s): XR CXR 1 VIEW EXAM: XR Chest, 1 View CLINICAL HISTORY: Reason for exam: Sepsis. TECHNIQUE: Frontal view of the chest. COMPARISON: No relevant prior studies available. FINDINGS: Lungs: No consolidation. No overt edema. Pleural space: No pleural effusion. No pneumothorax. Heart: Unremarkable. No cardiomegaly. Bones/joints: Chronic fracture deformity of the left proximal humerus. IMPRESSION: No acute findings in the chest. Electronically signed by: Edwin Camilo MD 11/22/24 23:30 PM
[2024-11-23] MEDS ORDERED: ONDANSETRON INJ 2 MG/ML 2 ML VIAL IV PRN (01:03)
[2024-11-23] MEDS ORDERED: bisacodyL 5 MG TABEC PO PRN (01:03)
[2024-11-23] MEDS ORDERED: ALBUT/IPRATROP 3MG/0.5MG NEB 3 ML VIAL INH PRN (01:03)
[2024-11-23] MEDS ORDERED: POLYETHYLENE (MIRALAX) 17 GM PACK PO PRN (01:03)
[2024-11-23] MEDS ORDERED: ACETAMINOPHEN 500 MG TAB PO PRN (01:03)
[2024-11-23] MEDS ORDERED: MELATONIN 3 MG TAB PO PRN (01:03)
[2024-11-23] MEDS ORDERED: traMADol HCL 50 MG TABLET PO PRN (01:03)
--- NOTE | 2024-11-23 07:43 | Hospitalist Progress Note ---
Date of Service November 23, 2024 Assessment & Plan (1) Influenza A: (2) Anemia: Plan 84-year-old female PMHx HTN and HLD presenting for "pain" x 1 day. ED evaluation CBC no leukocytosis, H&H 11.5/35.9, CMP with ratio 20.7, procalcitonin 0.06, lactate 1.1, magnesium 1.7; UA negative; BioFire positive for influenza A; CXR appearing grossly WNL, pending official read. Per ER note, presented febrile hypotensive and hypoxic with pre-hopsital treatment presented without hypoxia or hypotension but was provided 500cc NSS on admission #Influenza A Temp 101.4F at [facility], given tylenol per ER intake Symptoms of body pain x 1 day with associated symptoms of non-productive cough and sick contact being patient's roommate. WBC wnl, procal wnl. lactic not elevated. CXR no consolidation/PNA Biofire + flu Isolation precautions Tamifl 75mg PO x 1 in ER, continues on 30mg BID given renal function (EOT 11/26) Notable was continued NS @ 125cc/hr x 3 bags but discontinued given BUN/Cr 13/0.8 and good PO reported to prevent overload. Repeat CXR w/o congestion and remains on ROOM AIR Incentive spirometer, RN to provide Duonebs available prn Added mucinex BID PT/OT pending, from [facility] hopefully able to return vs escalation of care #Anemia Hgb 11.5 on admission, improved from prior and on PO iron at baseline. Notable prior lower hgb in September 23 to hip surgery and iron studies w/ low iron but will add ferritin w/ AM labs and consider holding PO/dose Venofer IV if remains low. B12 low normal 188, will order 1000mcg PO daily. Folate acceptable. Hgb 10.5 but as above was given 500cc NSS and continued NS @ 125cc/hr and suspect dilutional aspect and IVF has been discontinued NOTABLE W ANEMIA STILL ON ASA 81mg BID --> messaged ortho given surgery 09/28 and ok w/ changing back (notable does not appear was even on baby aspirin prior to surgery and could consider stopping altogether in f/u PCP) --> have changed to 81mg QAM fo 11/24 CBC in AM #HLD Continue Atorvastatin #HTN Hypotensive prior to admission w/ IVF provided above but no ongoing hypotension or hypotension on admission and IVF have been stopped as outlined BP 123/72 with improvement in renal function but will hold off until 3/5 AM to resume lisinopril 20mg daily unless BP elevation significantly this afternoon #B12 deficiency - low normal 188 as above. 1000mcg PO daily started -- would rx at discharge DVT proph: lovenox once daily. baby aspirin changed to once daily as above. Monitor for pepcid for GI proph but denied issues PT/OT consults pending, from [facility]. CM to follow to see if able to accept back or needing escalation in care prior to returning. Admission and Anticipated Discharge Date Admission Date: November 22, 2024 Supervising Physician Co-Signing Physician Notes The patient was not seen by me. The chart was reviewed. Case discussed with COREY Mckeon. Agree with assessment and plan Subjective Eval this morning, resting in bed. Easily awoken but fatigued. Reports feeling better. Reports Told me her apartment number at first but reports knows she is in the hospital, year 2024 and january. Reports living in apartment and not [facility], will need to verify. No SOB/sputum production. On room air. Discussed adding mucinex, nursing to provide incentive spirometer. Reports good intake w/ breakfast, IVF have been discontinued. PT/OT evals pending. CM to follow as prior send to [facility] but before September was in 1 story home. Questions/concerns addressed at this time. Physical Exam 2 Physical Exam: General: 84yo female sitting up in bed, NAD, reports feeling better HEENT: head atraumatic, normocephalic, mmm, trachea midline Resp even/unlabored, no wheezing/rales, on room air CV: RRR, no significant m/r/g, no pitting edema or calf tenderness GI: +BS, soft/NT MSK/Neuro: nonfocal, moves all extremities, R hip w/o erythema/swelling, answering questions appropriately Psych: alert to person, knows in hospital (not name), knows 2024, november Results & Data Results & Data Vital Signs (Past 12 Hours) Vital Signs Temp Pulse Pulse Pulse Resp BP BP 11/23/24 07:16 36.8 C 83 16 123/72 11/23/24 01:08 85 130/80 11/23/24 00:45 11/23/24 00:45 37.1 C 127 H 16 162/83 H 11/23/24 00:45 37.1 C 127 H 16 162/83 H 11/23/24 00:24 74 18 133/73 11/22/24 23:50 79 18 123/76 11/22/24 22:30 89 20 116/62 11/22/24 22:12 83 23 115/53 L 11/22/24 21:45 83 22 108/66 11/22/24 21:00 89 18 116/75 11/22/24 20:30 85 18 118/57 L 11/22/24 20:28 96 H 11/22/24 20:28 36.6 C 96 H 16 122/59 L 11/22/24 20:22 85 Pulse Ox O2 Del Method 11/23/24 07:16 92 Room Air 11/23/24 01:08 11/23/24 00:45 Room Air 11/23/24 00:45 94 Room Air 11/23/24 00:45 94 Room Air 11/23/24 00:24 94 11/22/24 23:50 94 Room Air 11/22/24 22:30 96 Room Air 11/22/24 22:12 95 11/22/24 21:45 95 11/22/24 21:00 93 11/22/24 20:30 92 Room Air 11/22/24 20:28 11/22/24 20:28 93 Room Air 11/22/24 20:22 Laboratory Results 11/23/24 09:30 11/23/24 09:30 Iron 18, TIBC 184, transferrin 139, trans % sat 10 B12 188 Folate 9.84 Diagnostic Findings Chest X-Ray 11/22/24 20:44 Exam(s): XR CXR 1 VIEW EXAM: XR Chest, 1 View CLINICAL HISTORY: Reason for exam: Sepsis. TECHNIQUE: Frontal view of the chest. COMPARISON: No relevant prior studies available. FINDINGS: Lungs: No consolidation. No overt edema. Pleural space: No pleural effusion. No pneumothorax. Heart: Unremarkable. No cardiomegaly. Bones/joints: Chronic fracture deformity of the left proximal humerus. IMPRESSION: No acute findings in the chest. Electronically signed by: Edwin Camilo MD 11/22/24 23:30 PM Chest X-Ray 11/23/24 08:41 XR chest 1V portable CLINICAL HISTORY: f/u COMPARISON STUDY: Chest radiograph November 22, 2024. FINDINGS: An old proximal left humeral fracture is incidentally noted. There is no pneumothorax or pleural effusion. There is no consolidation or evidence for pulmonary edema. Cardiomediastinal silhouette is stable. IMPRESSION: No acute cardiopulmonary findings. ACT 112: Negative or not required by law. Electronically signed by: Lul Rowley M.D. 11/23/2024 10:27 AM PG Care Time/CCT Total # of Minutes Spent Total Time Spent with Patient: Total time spent is greater than 50% in coordination of care (as documented) at patient's floor/unit and/or counseling patient: Coding Level of Care Code 61261 SUB INP/OBS CARE 350MIN Diagnoses Influenza A J10.1 Anemia D64.9
[2024-11-23] MEDS: ENOXAPARIN INJ 40 MG/0.4 ML SYR SQ SCH (07:56)
[2024-11-23] MEDS: CHOLECALCIFEROL 25 MCG (1000 UNITS) TAB PO SCH (07:56)
[2024-11-23] MEDS: FERROUS SULFATE 325 MG TAB PO SCH (07:57)
[2024-11-23] MEDS: ASPIRIN 81 MG ECTAB PO SCH (07:57)
[2024-11-23] MEDS: MAGNESIUM OXIDE 400 MG TAB PO SCH (07:57)
[2024-11-23] MEDS: ATORVASTATIN 20 MG TAB PO SCH (07:57)
[2024-11-23] MEDS: OSELTAMIVIR PHOSPHATE SUSP 30 MG/5 ML UDP PO SCH (07:58)
[2024-11-23 10:11] LABS: Hematocrit (blood only) 33.4 % (37.0-47.0); Hemoglobin 10.6 g/dl (12.0-16.0); Mean Corpuscular Hemoglobin 29.8 pg (25.0-34.0); Mean Corpuscular Hgb Conc 31.7 g/dL (32.0-36.0); Mean Corpuscular Volume 93.8 fL (80.0-100.0); Platelet Count 278 K/uL (130-400); RDW Coefficient of Variation 12.5 % (11.5-14.5); RDW Standard Deviation 43.1 fL (36.4-46.3); Red Blood Count 3.56 M/uL (4.20-5.40); White Blood Count 5.24 K/ul (4.8-10.8)
[2024-11-23 10:18] LABS: Iron 18 mcg/dl (35-150); Total Iron Binding Cap Calc 184 mcg/dl (250-450); Transferrin 139 mg/dl (200-360); Transferrin (FE) Percent Satur 10 % (15-50); Unsaturated Iron Binding Cap 166 mcg/dl (155-355)
--- NOTE | 2024-11-23 10:29 | XRay Report ---
XR chest 1V portable CLINICAL HISTORY: f/u COMPARISON STUDY: Chest radiograph November 22, 2024. FINDINGS: An old proximal left humeral fracture is incidentally noted. There is no pneumothorax or pl eural effusion. There is no consolidation or evidence for pulmonary edema. Cardiomediastinal silhouet te is stable. IMPRESSION: No acute cardiopulmonary findings. ACT 112: Negative or not required by law. Electronically signed by: Lul Rowley M.D. 11/23/2024 10:27 AM
[2024-11-23 10:35] LABS: BUN Creatinine Ratio 23.8 (10-20); Calcium 8.9 mg/dl (8.6-10.3); Creatinine Clr Calc Pharmacy 45.8 ml/min; Potassium 3.8 mmol/L (3.5-5.1)
[2024-11-23 10:41] LABS: Folate (Folic Acid),Ser orPlas 9.84 ng/ml (>5.38)
[2024-11-23] MEDS: guaiFENesin 600 MG TABCR PO SCH (12:29)
[2024-11-23] MEDS: CYANOCOBALAMIN (B-12) 500 MCG TABLET PO SCH (14:10)
[2024-11-24 07:41] LABS: BUN Creatinine Ratio 17.8 (10-20); Creatinine Clr Calc Pharmacy 50.2 ml/min; Magnesium 1.7 mg/dl (1.7-2.4); Potassium 4.2 mmol/L (3.5-5.1)
--- NOTE | 2024-11-24 08:08 | Hospitalist Progress Note ---
Date of Service November 24, 2024 Assessment & Plan (1) Influenza A: (2) Anemia: Plan 84-year-old female PMHx HTN and HLD presenting for "pain" x 1 day. ED evaluation CBC no leukocytosis, H&H 11.5/35.9, CMP with ratio 20.7, procalcitonin 0.06, lactate 1.1, magnesium 1.7; UA negative; BioFire positive for influenza A; CXR appearing grossly WNL, pending official read. Per ER note, presented febrile hypotensive and hypoxic with pre-hopsital treatment presented without hypoxia or hypotension but was provided 500cc NSS on admission #Influenza A -Symptoms of body pain x 1 day with associated symptoms of non- productive cough and sick contact being patient's roommate. Temp 101.4F at [facility], given tylenol per ER intake. WBC wnl, procal wnl. lactic not elevated. CXR no consolidation/PNA Biofire + flu A. Isolation precautions in place Tamiflu continued 30mg BID for renal function (EOT 11/26) Remains on RA, 94%. Continue incentive spirometer IVF on admission, since discontinued and good PO intake reported with stable renal function. CXR w/o consolitation or overload Duonebs available, added/continues mucinex BID Tessalon pearls made available if needed (declined at present) PT/OT placed and messaged this morning to see if able to see today for potential dc back to [facility] however possible may remain inpatient until completed/arranged for 11/25 pending therapy evals #HTN Hypotensive prior to admission w/ IVF provided above but no ongoing hypotension or hypotension on admission and IVF have been stopped. Good PO intake. Renal function stable BUN/Cr 13/0.73 Lisinopril 20mg PO daily resumed AM 11/24 for BP 145/75 given no hypotension yesterday evening or overnight but given repeat BP 100/70 on recheck have reduced lisinopril to 10mg daily for AM 11/25 and may need to consider holding/further reduction #B12 deficiency Low normal 188 as above. 1000mcg PO daily started -- would rx at discharge #Anemia Hgb 11.5 on admission, improved from prior and on PO iron at baseline. Notable prior lower hgb in September 23 to hip surgery and iron studies w/ low iron but no ferritin for review and added to labs 11/24 and was normal 326 B12 low normal as below/PO has been ordered and to be continued at dc. Folate wnl. Aspirin as prior note continued BID as was for DVT proph for hip, has completed >6wk course and changed to once daily for now but doesn't appear on prior to hip surgery and could also consider discontinuing this at dc as well but continue once daily for now Hgb stable considering copious IVF ordered on admission but has been stopped. Monitor in AM #HLD Continue Atorvastatin DVT proph: lovenox once daily. baby aspirin changed to once daily as above. Monitor for pepcid for GI proph but denied at this time any issues Dispo: PT/OT consults added as not in place and hopefully able to see today to get back to [facility] but otherwise can plan to dc 11/25. Monitor BP/reduce or hold lisinopril if any further issues Admission and Anticipated Discharge Date Admission Date: November 22, 2024 Supervising Physician Co-Signing Physician Notes The patient was not seen by me. The chart was reviewed. Case discussed with COREY Mckeon. Agree with assessment and plan Subjective Eval this morning, resting in bed. Good sleep. No CP/SOB, on room air. Occasional cough/denied Tessalon pearls at this time but discussed making available if needed. Good PO intake/appetite, reports moving bowels/no pain. Would like to go back to [facility] today if able to arrange, CM has been notified. Will arrange for dc if able later today. Alert to person/place/year/month.. Physical Exam 2 Physical Exam: General: 84yo female sitting up in bed, NAD, reports feeling better but does appear fatigued HEENT: head atraumatic, normocephalic, mmm, trachea midline Resp even/unlabored, no wheezing/rales, on room air CV: RRR, no significant m/r/g, no pitting edema or calf tenderness GI: +BS, soft/NT MSK/Neuro: nonfocal, moves all extremities, R hip w/o erythema/swelling, answering questions appropriately Psych: alert to person, knows in hospital, year 2024, month November, cooperative with exam Results & Data Results & Data Vital Signs (Past 12 Hours) Vital Signs Temp Pulse Resp BP BP Pulse Ox O2 Del Method 11/24/24 07:49 36.6 C 77 17 145/75 H 95 Room Air 11/23/24 22:03 Room Air 11/23/24 21:04 36.7 C 88 18 121/76 93 Room Air Laboratory Results 11/23/24 09:30 11/24/24 06:57 Ferritin 326 PG Care Time/CCT Total # of Minutes Spent Total Time Spent with Patient: Total time spent is greater than 50% in coordination of care (as documented) at patient's floor/unit and/or counseling patient: Coding Level of Care Code 02886 SUB INP/OBS CARE 3/50MIN Diagnoses Influenza A J10.1 Anemia D64.9
[2024-11-24] MEDS: ASPIRIN 81 MG ECTAB PO SCH (09:20)
[2024-11-24] MEDS: lisinopril 20 MG TAB PO SCH (09:21)
[2024-11-24 15:46] VITALS: TEMP 97.7
--- NOTE | 2024-11-24 20:39 | Electrocardiogram Report ---
Test Reason : Blood Pressure : */* mmHG Vent. Rate : 100 BPM Atrial Rate : 100 BPM P-R Int : 240 ms QRS Dur : 68 ms QT Int : 366 ms P-R-T Axes : 56 -42 65 degrees QTcB Int : 472 ms Sinus rhythm with 1st degree A-V block with Premature atrial complexes Left axis deviation Inferior infarct , age undetermined Abnormal ECG When compared with ECG of 27-Sep-2024 11:50, Premature atrial complexes are now Present Inferior infarct is now Present QT has lengthened Confirmed by Dain Sarabia ([id number]) on 11/24/2024 8:39:42 PM Referred By: REFERRED SELF Confirmed By: Dain Sarabia
--- NOTE | 2024-11-25 07:43 | Hospitalist Progress Note ---
Date of Service November 25, 2024 Assessment & Plan (1) Influenza A: (2) Anemia: Plan 84-year-old female PMHx HTN and HLD presenting for "pain" x 24hrs, from [facility] at rehab and w/ +flu in roommate reported by patient. Temp 101.4F reported at [facility]. UA not appearing infected Per ER note, presented febrile hypotensive and hypoxic with pre-hopsital treatment presented without hypoxia or hypotension but was provided 500cc NSS on admission. Procal wnl, lactic NOT elevated #Influenza A Viral testing + for Influenza A. CXR w/o acute consolidation and was on RA on arrival however noted hypoxia pre- hospital and was given Tylenol WBC wnl, hgb 11.5. BUN/Cr 23/1.11 and did appear slightly dry -- was continued NS @ 125cc/hr x 3 bags however BUN/Cr on repeat testing 11/24 19/0.8 and good PO intake reported and have been stopped to prevent overload Isolation precautions continued Tamiflu BID x 5 day course, EOT 11/26 Continue incentive spirometer, mucinex BID Duonebs/tessalon pearls and tylenol available as needed for supportive care PT/OT consulted, plans to return back to [facility] 11/26. 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 (however intake reported BP 122/59 on arrival) Was given 500cc NSS bolus/continued on IVF as above and now OFF/lisinopril initially held Lisinopril 20mg PO daily resumed for 11/24 given BP 145/73 however review of BPs last evening w/ BP 110/72, 118/73 was planned to reduce to 10mg/monitor for 11/25 HOWEVER possible/suspect on TOO HIGH of a dose and could contribute to falls w/ advanced age and will HOLD (NOT GIVEN THIS MORNING) and monitor OFF --- if elevated BP/needed would resume at LOWER dose, ie 2.5-5mg Monitor serial measurements and consider lower dose as discussed vs STOPPING this altogether at [facility] #B12 deficiency NEW, B12 checked w/ hx falls and B12 was LOW normal at 188. --Started 1000mcg PO daily and would rec to continue at [facility] #Anemia Acute/chronic given recent admission Sep for R hip fx and had been on PO iron. Hgb 11.5 on admission but suspect elevated/hemoconcentrated from poor PO intake on admission/dehydration and repeat 10.6 with IVF Continues on PO iron but placed on hold for now to monitor for constipation issues/colace and senna have been added. Notable iron low/ferritin acceptable but low trans % sat. HAS BEEN ON ASA 81mg BID SINCE SURGERY 09/28 for DVT proph, TOO LONG. NOT needed per message to her orthopedics provider from their stand point Cut to ASA 81mg once daily, however review doesn't appear to have been on and could consider stopping however will continue ONCE daily for now Pepcid once daily added for GI proph but no abd pain reported/monitor Will monitor CBC in AM off IVF to ensure stable. #HLD Continue Atorvastatin . Aspirin to once daily above but doesn't appear to have hx CVA and if no indication can STOP at dc DVT Proph: Lovenox SQ once daily. Pepcid PO once daily for GI proph has been added given ongoing ASA use above Dispo: hopeful dc back to [facility] 11/26, possibly OFF lisinopril vs lower dose +/- aspirin. Would continue PO B12 supplementation and if hgbstable on repeat would convert PO iron to q2d to prevent constipaiton issues Admission and Anticipated Discharge Date Admission Date: November 22, 2024 Supervising Physician Co-Signing Physician Notes The patient was not seen by me. The chart was reviewed. Case discussed with COREY Mckeon. Agree with assessment and plan Subjective Resting in bed this morning, easily awoken to name. Alert to person, knows in hospital in [place], year 2024, month November. Reports no SOB, decreased cough. Reports her eventual goal is to get back home after her rehab. Reports she thinks she is doing pretty well from her hip actually. Reviewed PT notes and discussed if able to have CM/myself touch base w/ daughter for discussions about disposition which she was agreeable. Aspirin changed to once daily and likely can dc. Lisinopril usage discussed, was on 20mg daily. Prior plans to cut in half but discussed holding given age/fall risk and BP lower normal and only 143/77 in hospital setting on repeat and will monitor off/consider lower dose if at all needed. Questions/concerns addressed at this time. Physical Exam 2 Physical Exam: General: 84yo female resting in bed, reports feeling well/NAD HEENT: head atraumatic, normocephalic, mmm, trachea midline Resp even/unlabored, no wheezing/rales, on room air CV: RRR, no significant m/r/g, no pitting edema or calf tenderness GI: +BS, slight distension but soft/NONTENDER MSK/Neuro: nonfocal, moves all extremities, R hip w/o erythema/swelling, answering questions appropriately Psych: alert to person, knows in hospital, 2024, month November, cooperative with exam Results & Data Results & Data Vital Signs (Past 12 Hours) Vital Signs Temp Pulse Resp BP Pulse Ox O2 Del Method 11/24/24 20:30 36.5 C 82 20 118/73 93 Room Air 11/24/24 20:05 Room Air Laboratory Results 11/23/24 09:30 11/24/24 06:57 PG Care Time/CCT Total # of Minutes Spent Total Time Spent with Patient: Total time spent is greater than 50% in coordination of care (as documented) at patient's floor/unit and/or counseling patient: Coding Level of Care Code 64827 SUB INP/OBS CARE 3/50MIN Diagnoses Influenza A J10.1 Anemia D64.9
[2024-11-25] MEDS ORDERED: lisinopril 10 MG TAB PO SCH (09:00)
[2024-11-25] MEDS: DOCUSATE SODIUM 100 MG CAP PO SCH (10:56)
[2024-11-25] MEDS: SENNA 8.6 MG TAB PO SCH (20:15)
[2024-11-25 20:57] VITALS: O2SAT 97
--- NOTE | 2024-11-26 07:52 | Hospitalist Progress Note ---
Date of Service November 26, 2024 Assessment & Plan (1) Influenza A: (2) Anemia: Plan 84-year-old female PMHx HTN and HLD presenting for "pain" x 24hrs, from [facility] at rehab and w/ +flu in roommate reported by patient. Temp 101.4F reported at [facility]. UA not appearing infected Per ER note, presented febrile hypotensive and hypoxic with pre-hopsital treatment presented without hypoxia or hypotension but was provided 500cc NSS on admission. Procal wnl, lactic NOT elevated #Influenza A Viral testing + for Influenza A. CXR w/o acute consolidation and was on RA on arrival however noted hypoxia pre- hospital and was given Tylenol WBC wnl, hgb 11.5. BUN/Cr 23/1.11 and did appear slightly dry -- was continued NS @ 125cc/hr x 3 bags however BUN/Cr on repeat testing 11/24 19/0.8 and good PO intake reported and have been stopped to prevent overload Isolation precautions continued Tamiflu BID x 5 day course, EOT 11/26 Continue incentive spirometer, mucinex BID Duonebs/tessalon pearls and tylenol available as needed for supportive care PT/OT consulted, plans to return back to [facility] 11/26. CM following 11/26 BPs OFF of HTN medications : 143/72 in the morning yesterday but repeat 112/62, 116/74. 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 on arrival) Was given 500cc NSS bolus/continued on IVF as above and now OFF/lisinopril initially held Lisinopril 20mg PO daily resumed for 11/24 given BP 145/73 however review of BPs last evening w/ BP 110/72, 118/73 was planned to reduce to 10mg/monitor for 11/25 HOWEVER possible/suspect on TOO HIGH of a dose and could contribute to falls w/ advanced age and will HOLD (NOT GIVEN THIS MORNING) and monitor OFF --- if elevated BP/needed would resume at LOWER dose, ie 2.5-5mg Monitor serial measurements and consider lower dose as discussed vs STOPPING this altogether at dc #B12 deficiency NEW, B12 checked w/ hx falls and B12 was LOW normal at 188. --Started 1000mcg PO daily and would rec to continue at [facility] #Anemia Acute/chronic given recent admission Sep for R hip fx and had been on PO iron. Hgb 11.5 on admission but suspect elevated/hemoconcentrated from poor PO intake on admission/dehydration and repeat 10.6 with IVF Continues on PO iron but placed on hold for now to monitor for constipation issues/colace and senna have been added. Notable iron low/ferritin acceptable but low trans % sat. HAS BEEN ON ASA 81mg BID SINCE SURGERY 09/28 for DVT proph, TOO LONG. NOT needed per message to her orthopedics provider from their stand point Cut to ASA 81mg once daily, however review doesn't appear to have been on and could consider stopping however will continue ONCE daily for now Pepcid once daily added for GI proph but no abd pain reported/monitor Will monitor CBC in AM off IVF to ensure stable. #HLD Continue Atorvastatin . Aspirin to once daily above but doesn't appear to have hx CVA and if no indication can STOP at dc DVT Proph: Lovenox SQ once daily. Pepcid PO once daily for GI proph has been added given ongoing ASA use above Dispo: hopeful dc back to [facility] 11/26, possibly OFF lisinopril vs lower dose +/- aspirin. Would continue PO B12 supplementation and if hgbstable on repeat would convert PO iron to q2d to prevent constipaiton issues Admission and Anticipated Discharge Date Admission Date: November 22, 2024 Results & Data Results & Data Vital Signs (Past 12 Hours) Vital Signs Temp Pulse Resp BP Pulse Ox O2 Del Method 11/25/24 20:45 Room Air 11/25/24 20:09 36.5 C 78 20 116/74 97 Room Air PG Care Time/CCT Total # of Minutes Spent Total Time Spent with Patient: Total time spent is greater than 50% in coordination of care (as documented) at patient's floor/unit and/or counseling patient: Coding Diagnoses Influenza A J10.1 Anemia D64.9
[2024-11-26] MEDS: FAMOTIDINE 10 MG TABLET PO SCH (08:00)
[2024-11-26 08:38] LABS: BUN Creatinine Ratio 19.4 (10-20); Calcium 9.3 mg/dl (8.6-10.3); Creatinine Clr Calc Pharmacy 50.9 ml/min; Hematocrit (blood only) 36.4 % (37.0-47.0); Hemoglobin 12.1 g/dl (12.0-16.0); Magnesium 1.7 mg/dl (1.7-2.4); Mean Corpuscular Hemoglobin 30.3 pg (25.0-34.0); Mean Corpuscular Hgb Conc 33.2 g/dL (32.0-36.0); Mean Corpuscular Volume 91.2 fL (80.0-100.0); Mean Platelet Volume 9.4 fL (9.4-12.4); Platelet Count 299 K/uL (130-400); Potassium 3.8 mmol/L (3.5-5.1); RDW Coefficient of Variation 12.1 % (11.5-14.5); RDW Standard Deviation 40.8 fL (36.4-46.3); Red Blood Count 3.99 M/uL (4.20-5.40); White Blood Count 5.74 K/ul (4.8-10.8)
--- NOTE | 2024-11-26 09:03 | Discharge Summary ---
Discharge Summary Date of Service November 26, 2024 Principal Dx & Hospital Course #1 = Principal Diagnosis (1) Influenza A: (2) Anemia: (3) B12 deficiency: (4) Intertrochanteric fracture of right hip: Plan #Influenza A 84-year-old female PMHx HTN and HLD presenting for "pain" x 24hrs, from [facility] at rehab and w/ +flu in roommate reported by patient. Temp 101.4F reported at [facility]. UA not appearing infected Procal wnl, lactic not elevated. Given 500cc bolus on admission for borderline BP Flu testing + flu A Isolation precautions ordered Was given Tamiflu 75mg PO x 1 in ER, continued 30mg BID for renal function and has 1 dose tonight (11/26) to complete 5 day course. CXR w/o consolidation and remained on ROOM air. Continued mucinex BID and incentive spirometer. Did not require any nebulizers at all. 97% prior to dc PT/OT consulted and cleared to return back to [facility]. Of note, has been since Sep w/ hip fracture but does appear improving/no issues from her hip and notable as below her BP EXCELLENT CONTROL OFF LISINOPRIL (was on 20mg daily) and have STOPPED at [facility] all together. Also noted was on ASA 81mg BID and surgery was 09/28 and does NOT need to be on aspirin BID anymore and has been STOPPED. Hgb 12.1 prior to dc and rec to discuss PO iron w/ PCP in follow up and consider decreasing to prevent any constipation issues and has moved bowels prior to discharge. #HTN BP borderline on admission/IVF provided and lisinopril held. Notable lisinopril 20mg daily for many years per daughter and patient was heavier in past and decreased PO overall w advancing age and suspected OVER TREATMENT --> was planned to cut in half initially but once resumed she had quite lower BP and monitored OFF and BPs were WELL controlled (112/62, 116/74) --> Have STOPPED lisinopril at dc. Rec to monitor BP at SNF and only resume LOW dose i.e. 2.5mg if needed for significant elevations #HLD continued on low dose statin #B12 deficiency/balance issues Checked B12 w/ advanced age and falls and was LOW NORMAL 188. Started/recommended and continued 1000mg PO daily at discharge #Hip fracture, R - hx of such as noted 09/28/24; repair w/ Dr Rivera - aspirin STOPPED - NOT continued at [facility]. Was NOT on daily asa prior to surgery and have stopped altogehter - No evidence for DVT and ambulation improving per patient and w/ PT. PT/OT consulted and continued therapy at [facility] planned. PO iron per PCP in f/u DVT proph: Lovenox SQ while inpatient. Was on pepcid for GI proph but given STOP aspirin as above will not continue at [facility] Dispo: [facility]. Hopefully if has continued improvement w/ above can improve w/ ongoing therapy at SNF as patient eventual goal is to return home w/ daughter but per discussion w/ daughter currently working and unsafe to be at home by herself at this time. Notes For Next Care Provider Lisinopril has been stopped and BPs well controlled off and suspect over treated. Rec'd to continue monitoring BP/consider low dose 2.5mg if needed (vs low dose amlodipine) Monitor repeat hgb but consider iron 2-3x/wk if needed but hgb 12.1 prior to discharge w/ stable BUN/Cr Notable was also continued on ASA 81mg BID for DVT proph from her hip surgery first week of september and I did message orthopedic surgeon who did feel any further needed and has been 2 months since surgery and have STOPPED this at discharge Blood cultures NGTD x 48 hrs and will need f/u to ensure negative but CXR w/o PNA and UA w/o bacteria and denied urinary sx Medication Changes From Visit STOPPED ASA 81mg BID STOPPED Lisinopril 20mg daily Added B12 1000mcg PO daily HOLD PO Iron until discussion in f/u given stable hgb Admission HPI Per Admitting Provider 84-year-old female PMHx HTN and HLD presenting for "pain" x 1 day. Patient arrived via EMS from [facility] with hypotension, hypoxia, and fever of 101.4 F. 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 Also has had a cough x "days" which is nonproductive in nature. Patient denying chest pain, shortness of breath, palpitations, abdominal pain, N/V/D/C, N/tingling, weakness, syncope, fever/chills, or URI symptoms to include rhinorrhea or sore throat. Patient states that she thinks that her roommate is sick as she has been coughing excessively. ED evaluation CBC no leukocytosis, H&H 11.5/35.9, CMP with ratio 20.7, procalcitonin 0.06, lactate 1.1, magnesium 1.7; UA negative; BioFire positive for influenza A; CXR appearing grossly WNL, pending official read. Please see Dr. Pike's attestation for adjustments/additions to treatment plan. Admission Exam Per Admitting Provider General: No acute distress Skin: Warm and dry Head: Normocephalic, atraumatic Eyes: PERRL, conjunctivae clear, sclera non-icteric ENT: External ear and ear canal without swelling; nose atraumatic; good dentition, tongue normal appearance, pharynx normal Neck: Supple, no LAD Cardio: RRR, no M/G/R, S1 and S2 normal Resp: No respiratory distress, Lungs CTA in all lobes bilaterally, no wheezes, rales, or rhonchi Abdomen: Soft, symmetric, nontender; no distention; No masses or hepatosplenomegaly; Bowel sounds normoactive MSK: No deformities, full ROM throughout; pulses palpable and equal; no edema; R hip nonerythematous, no edema, no open areas, full ROM Neuro: Awake, alert; CN grossly intact Psych: Appropriate mood and affect; good judgement and insight. Discharge Exam General: 84yo female resting in bed, reports feeling well/NAD HEENT: head atraumatic, normocephalic, mmm, trachea midline Resp even/unlabored, no wheezing/rales, on room air CV: RRR, no significant m/r/g, no pitting edema or calf tenderness GI: +BS, no further distension, soft/NT MSK/Neuro: nonfocal, moves all extremities, R hip w/o erythema/swelling, answering questions appropriately Psych: alert to person, knows in hospital, 2024, month November, cooperative with exam Discharge Plan Discharge Items Patient Disposition: Transfer Longterm Fac Reason For Visit: HYPOXIA, HYPOTENSION, FLU A Discharge Diagnosis: Influenza Goals: You have been hospitalized for an acute medical problem. During your stay at [facility], we have made an effort to correct the problem that brought you to the hospital while keeping you as comfortable as possible. Medications were used to bring your condition under control and your discharge instructions will include directions for any medications you should take after leaving the hospital. Please make sure you see your Primary Care Provider as part of your follow up plan. Activity: As commented below Non-emergency contact: Primary Care Provider Call non-emergency contact if: you have any medication questions, your symptoms worsen, your pain is not controlled, your pain is worsening and your pain is unusual for you Follow-up/Referrals: Lupe Alvarez CRNP [Primary Care Provider] - Diet: Regular Addtl Attending Provider Instructions: You have been hospitalized for influenza. You have been provided tamiflu and have another dose tonight to complete the 5 day course. You can continue mucinex twice daily for the next week to help with congestion symptoms and keep your mucus thin. Chest imaging did NOT show any evidence for pneumonia. I also did some review of your medications with lisinopril for blood pressure and history of falls and initially planned to reduce this but ultimately this was STOPPED altogether and your blood pressure has been EXCELLENT. We recommend continuing to monitor blood pressure and can consider resuming at LOW DOSE (like 2.5mg) if needed for elevated blood pressure in follow up with primary care. I also noted with your balance issues and history of hip fracture that your vitamin B12 was LOW and started on replacement which should be continued 1000mcg by mouth once daily. You were also on daily oral iron along with baby aspirin twice daily since that time and you DO NOT NEED ANY MORE ASPIRIN and your hemoglobin was stable at 12.1 and can switch to taking the oral iron three times a week or consider stopping altogether. Arrangements have been made for Violet Buchanan at discharge. Please follow up with primary care in the next 7-10 days after discharge to monitor your status and coordinate your care. Please return to the ER with any fever/chills, chest pain, shortness of breath or for any other symptoms concerning for you. Take care. Pending Studies at Discharge: Yes Studies:: blood cultures NO GROWTH TO DATE Stand-Alone Forms: My [facility] Skilled Items Patient informed of condition?: Yes DNR: Yes Discharge Level of Care: Skilled Communicable Disease: Yes Discharge Prognosis: Improving Lines: None Urinary Catheter: No Medications and DC Order Prescriptions: New cyanocobalamin (vitamin B-12) 500 mcg Tablet 1,000 mcg PO QAM Qty: 30 0RF guaifenesin [Mucinex] 600 mg Tablet Extended Release 12hr 1,200 mg PO Q12 Qty: 14 0RF oseltamivir [Tamiflu] 30 mg capsule 30 mg PO BID Qty: 1 0RF Continued ipratropium-albuterol [DuoNeb] 0.5 mg-3 mg(2.5 mg base)/3 mL Solution For Nebulization 3 ml INHALATION Q4H PRN (Reason: wheezing/sob/cough) bisacodyl [Biscolax] 5 mg Tablet,Delayed Release (Dr/Ec) 10 mg PO HS PRN (Reason: Constipation) magnesium 200 mg Tablet 400 mg PO DAILY calcium carbonate 600 mg calcium (1.5 gram) Tablet,Chewable 600 tab PO DAILY cholecalciferol (vitamin D3) [Vitamin D3] 50 mcg (2,000 unit) Tablet 50 mcg PO DAILY omega 2-lrq-ajw-fish oil [Fish Oil] 1,200 (144-216) mg Capsule 1,200 cap PO DAILY atorvastatin 20 mg Tablet 20 mg PO DAILY Rx Instructions: per daughter, she isnt too sure which cholesterol medication pt takes. Either atorvastatin or rosuvastatin. She's pretty positive it's atorvastatin. Fill history hasnt populated with any prescripts. acetaminophen 500 mg Tablet 500 mg PO Q4H PRN (Reason: Pain) tramadol 50 mg tablet 50 mg PO Q8H PRN (Reason: pain) Qty: 10 0RF Held ferrous sulfate 325 mg (65 mg iron) Tablet 325 mg PO DAILY Hold Instructions: discuss switching to three times weekly with PCP in follow up Discontinued lisinopril 20 mg Tablet 20 mg PO DAILY aspirin 81 mg Tablet,Delayed Release (Dr/Ec) 81 mg PO BID Qty: 70 0RF Discharge Orders: Discharge Order (Routine); Ordered 11/26/24 Ordered By: Anne Hill Admission Data Admit Date/Time: 11/22/24 22:46 Attending Provider: Trevin Duarte Admit Provider: Sandra Pike Primary Care Provider: Lupe Alvarez Other Providers: Sandra Pike; Violet [facility] Stay Data Consultations 11/22/24 23:45 ED Decision to Admit Stat Diagnostic Imagining Performed Chest X-Ray 11/22/24 20:44 Exam(s): XR CXR 1 VIEW EXAM: XR Chest, 1 View CLINICAL HISTORY: Reason for exam: Sepsis. TECHNIQUE: Frontal view of the chest. COMPARISON: No relevant prior studies available. FINDINGS: Lungs: No consolidation. No overt edema. Pleural space: No pleural effusion. No pneumothorax. Heart: Unremarkable. No cardiomegaly. Bones/joints: Chronic fracture deformity of the left proximal humerus. IMPRESSION: No acute findings in the chest. Electronically signed by: Edwin Camilo MD 11/22/24 23:30 PM Chest X-Ray 11/23/24 08:41 XR chest 1V portable CLINICAL HISTORY: f/u COMPARISON STUDY: Chest radiograph November 22, 2024. FINDINGS: An old proximal left humeral fracture is incidentally noted. There is no pneumothorax or pleural effusion. There is no consolidation or evidence for pulmonary edema. Cardiomediastinal silhouette is stable. IMPRESSION: No acute cardiopulmonary findings. ACT 112: Negative or not required by law. Electronically signed by: Lul Rowley M.D. 11/23/2024 10:27 AM Discharge Instructions Given to Patient (Per Discharging Provider) You have been hospitalized for influenza. You have been provided tamiflu and have another dose tonight to complete the 5 day course. You can continue mucinex twice daily for the next week to help with congestion symptoms and keep your mucus thin. Chest imaging did NOT show any evidence for pneumonia. I also did some review of your medications with lisinopril for blood pressure and history of falls and initially planned to reduce this but ultimately this was STOPPED altogether and your blood pressure has been EXCELLENT. We recommend continuing to monitor blood pressure and can consider resuming at LOW DOSE (like 2.5mg) if needed for elevated blood pressure in follow up with primary care. I also noted with your balance issues and history of hip fracture that your vitamin B12 was LOW and started on replacement which should be continued 1000mcg by mouth once daily. You were also on daily oral iron along with baby aspirin twice daily since that time and you DO NOT NEED ANY MORE ASPIRIN and your hemoglobin was stable at 12.1 and can switch to taking the oral iron three times a week or consider stopping altogether. Arrangements have been made for Violet Buchanan at discharge. Please follow up with primary care in the next 7-10 days after discharge to monitor your status and coordinate your care. Please return to the ER with any fever/chills, chest pain, shortness of breath or for any other symptoms concerning for you. Take care. Supervising Physician Co-Signing Physician Notes The patient was not seen by me. The chart was reviewed. Case discussed with COREY Mckeon. Agree with assessment and plan Total Time Total Time Spent Total Time Spent (In Minutes): 45 Coding Level of Care Code 92041 INP/OBS DISCH >30 MIN Diagnoses Influenza A J10.1 Anemia D64.9 B12 deficiency E53.8 Intertrochanteric fracture of right hip S72.141A
[2024-11-26 09:39] VITALS: PULSE 80; RESP 16
[2024-11-26 13:21] VITALS: BP 145/75
== END 2024-11-26 14:29 | DRG 195 ==
LOC: ED 20:16 → SUATTDRO 22:46 → INTOOBSV 22:46 → 3N 22:46